=== PATIENT | male | born 1960 | race Caucasian/White ===

== ENCOUNTER 2021-06-16 15:46 | Inpatient (IN) | payer OTHER ==
[~2021-06-16] VITALS: Ht 182.9 cm; Wt 77.6 kg
[~2021-06-16 15:46] MED LIST: CIPR500 PO; DOCU100 PO; FINA5 PO; HYDR1TAB94 PO; LEVFLO250 PO; LOSA25 PO; METF500 PO; METO50ER PO; Novolin R100 UNIT/M; TAMS.4ER PO
[2021-06-16 17:21] LABS: BASOPHILS ABSOLUTE AUTO 0.05 K/mm3 (0.00-0.23); BASOPHILS PERCENT AUTO 0 % (0-2); EOSINOPHILS ABSOLUTE AUTO 0.02 K/mm3 (0.00-0.68); EOSINOPHILS PERCENT AUTO 0 % (0-6); Hematocrit 37.6 % (37.0-53.0); Hemoglobin 12.6 g/dL (13.5-17.5); IMMATURE GRAN ABSOLUTE AUTO 0.06 K/mm3 (0.00-0.10); IMMATURE GRAN PERCENT AUTO 0 % (0-1); LYMPHOCYTES PERCENT AUTO 12 % (21-46); MONOCYTES ABSOLUTE AUTO 0.63 K/mm3 (0.16-1.47); MONOCYTES PERCENT AUTO 4 % (4-13); Mean Corpuscular HGB 32.6 pg (26.0-34.0); Mean Corpuscular HGB Conc 33.5 g/dL (31.5-36.5); Mean Corpuscular Volume 97 fL (80-100); Mean Platelet Volume 9.4 fL (9.1-12.4); NEUTROPHILS ABSOLUTE AUTO 14.08 K/mm3 (1.96-9.15); NEUTROPHILS PERCENT AUTO 83 % (41-73); Platelet Count 618 K/mm3 (150-400); RDW Standard Deviation 53.6 fL (35.1-46.3); Red Blood Cell Count 3.87 M/mm3 (4.30-5.90); White Blood Cell Count 16.94 K/mm3 (4.00-11.30)
[2021-06-16 17:52] LABS: C-REACTIVE PROTEIN, EXT RANGE 0.359 mg/dL (0.000-0.300)
[2021-06-16 17:53] LABS: Alanine Aminotransfer (ALT/SGP 31 U/L (12-78); Albumin, Blood 1.6 g/dL (3.4-5.0); Albumin/Globulin Ratio 0.4 (0.8-1.8); Alk Phos 120 U/L (50-136); Anion Gap 6 mmol/L (6-16); Aspartate Aminotrans (AST/SGOT 31 U/L (12-37); Bilirubin, Total 0.1 mg/dL (0.1-1.0); Blood Urea Nitrogen 42 mg/dL (8-24); Bun/Creatinine Ratio 13.8 (12.0-20.0); CO2, Blood 22 mmol/L (21-32); Chloride, Blood 109 mmol/L (98-108); Creatinine, Blood 3.04 mg/dL (0.60-1.20); Globulin, Blood 3.7 g/dL (2.2-4.0); Glomerular Filtration Rate 21 (60-); Glucose, Blood 59 mg/dL (70-99); Potassium, Blood 5.2 mmol/L (3.5-5.5); Sodium, Blood 137 mmol/L (136-145); Total Protein, Blood 5.3 g/dL (6.4-8.2); Troponin I <0.015 ng/mL (0.000-0.040)
[2021-06-16] MEDS ORDERED: LISI20 PO (23:29)
[2021-06-16 23:45] LABS: Phosphorus, Blood 5.2 mg/dL (2.5-4.9)
[2021-06-17 01:03] LABS: Source, Urine Clean Catch
[2021-06-17 01:19] LABS: Bilirubin, Urine Neg (Neg); Blood, Urine 2+ (Neg); Glucose Qualitative, Urine 1+ (Neg); Ketones, Urine 1+ (Neg); Leukocyte Esterase, Urine Neg (Neg); Nitrite, Urine Neg (Neg); Protein, Urine 4+ (Neg); Urobilinogen, Urine NORM (Normal)
[2021-06-17 01:23] LABS: Appearance, Urine Clear (Clear)
[2021-06-17 01:25] LABS: Bacteria Not Seen /hpf; Red Blood Cells, Urine 0-2 /hpf (0-2); Squamous Epithelial Cells Not Seen /hpf (Few); White Blood Cells, Urine Not Seen /hpf (0-5)
[2021-06-17 01:26] LABS: Color, Urine Pale Yellow (P-Yellow)
--- NOTE | 2021-06-17 02:17 | NUR ---
PATIENT IS A NEW ADMIT FROM THE ED. AXOX 4, ONE ASSIST TRANSFER FROM [facility] TO BED. HYPERTENSIVE ON ADMIT AND ON ROOM AIR. LEFT PUPIL HORIZONTAL AND REPORTS BOTH EYES LIGHT SENSITIVE WITH HX OF CATARACTS. USES URINAL AT BEDSIDE ON LASIX FROM ED. MULTIPLE DIABETIC WOUNDS ON BLE FROM KNEE TO ANKLES. ERASER SIZE PRESSURE ULCER NOTED ON COCCYX. PATIENT ORIENTED TO ROOM AND CALL LIGHT SYSTEM. DENIES CHEST PAIN, SOB, AND N/V. WATCHING TV AFTER ASSESSMENT.
--- NOTE | 2021-06-17 02:24 | NUR ---
BP 200/106 AND IV APRESOLINE 10 MG GIVEN FOR SBP>180. BP 165/77 ON RECHECK. WOUND CONSENT SIGNED AND PICTURES TAKEN AND IN CHART. IV VANCO INFUSED. CALL LIGHT IN REACH.
--- NOTE | 2021-06-17 02:26 | NUR ---
URINE SAMPLE COLLECTED AND SENT TO LAB.
--- NOTE | 2021-06-17 04:30 | NUR ---
SHIFT SUMMARY PATIENT HAD NO ACUTE CHANGES. AXOX 4 AND SBA TO BSC. USES URINAL AT BEDSIDE. REPORTS BLURRED VISION AT TIMES AND HAS APPOINTMENT WITH HIS OPTHAMOLOGIST WITH HX OF CATARACTS AND LIGHT SENSITIVE. PIV REMAINS INTACT. IV ABX INFUSED. ENVELOPE ADDRESSER REPORTS NSR 92. BLE DIABETIC WOUNDS PHOTOGRAPHED AND IN CHART WITH CONSENT TO PHOTOGRAPH SIGNED. REPORTS HE IS UNCONTROLLED DIABETIC WITH LAST CHECK OF CBG MONTH AND HALF AGO. URINE SAMPLE SENT TO LAB. DENIES CHEST PAIN, SOB, AND N/V. COOPERATIVE WITH CARE. CALL LIGHT IN REACH. BED IN LOWEST POSITION. WILL CONTINUE TO MONITOR UNTIL DAY SHIFT NURSE ASSUMES CARE.
[2021-06-17 05:50] LABS: BASOPHILS ABSOLUTE AUTO 0.06 K/mm3 (0.00-0.23); BASOPHILS PERCENT AUTO 1 % (0-2); EOSINOPHILS ABSOLUTE AUTO 0.08 K/mm3 (0.00-0.68); EOSINOPHILS PERCENT AUTO 1 % (0-6); Hemoglobin 9.7 g/dL (13.5-17.5); IMMATURE GRAN ABSOLUTE AUTO 0.03 K/mm3 (0.00-0.10); IMMATURE GRAN PERCENT AUTO 0 % (0-1); LYMPHOCYTES PERCENT AUTO 15 % (21-46); MONOCYTES ABSOLUTE AUTO 0.62 K/mm3 (0.16-1.47); MONOCYTES PERCENT AUTO 5 % (4-13); Mean Corpuscular HGB 32.4 pg (26.0-34.0); Mean Corpuscular HGB Conc 33.4 g/dL (31.5-36.5); Mean Corpuscular Volume 97 fL (80-100); Mean Platelet Volume 9.8 fL (9.1-12.4); NEUTROPHILS PERCENT AUTO 78 % (41-73); Platelet Count 459 K/mm3 (150-400); RDW Coefficient Variation 14.8 % (11.7-14.2); RDW Standard Deviation 52.4 fL (35.1-46.3); Red Blood Cell Count 2.99 M/mm3 (4.30-5.90); White Blood Cell Count 11.89 K/mm3 (4.00-11.30)
[2021-06-17 06:25] LABS: Albumin/Globulin Ratio 0.4 (0.8-1.8); Bilirubin, Total 0.1 mg/dL (0.1-1.0); Bun/Creatinine Ratio 13.4 (12.0-20.0); Calcium, Blood 7.4 mg/dL (8.5-10.1); Creatinine, Blood 3.44 mg/dL (0.60-1.20); Globulin, Blood 2.8 g/dL (2.2-4.0); Magnesium, Blood 1.4 mg/dL (1.6-2.4); Potassium, Blood 4.9 mmol/L (3.5-5.5); Total Protein, Blood 3.8 g/dL (6.4-8.2)
--- NOTE | 2021-06-17 19:39 | NUR ---
PT A/O X4.AMBULATES WELL TO THE BATHROOM.NO ACUTE CHANGES. NO SIGNS OF DISTRESS. PT IS VERY COOPERATIVE WITH CARE. BILATERAL LOWER EXT WOUNDS CLEANED. WOUND CONSULT PER PROVIDER ORDER. PT STATES THAT ALIS IS WORKING BECAUSE HE SAW VERY MUCH LESS SWELLING. BP ELEVATED. TREATED PER MAR. PROVIDER NOTIFIED. REPORT GIVEN TO FORENSIC INVESTIGATOR NURSE
--- NOTE | 2021-06-17 19:47 | NUR ---
PATIENT EXTREMELY AGITATED REPORTING WANTS TO LEAVE AMA. DAY RN REPORTS NEEDED TO RECHECK HIGH BP MULTIPLE TIMES AND PATIENT UPSET. PATIENT IN BED AND WILL LET REST.
--- NOTE | 2021-06-18 04:09 | NUR ---
SHIFT SUMMARY PATIENT AGITATED AT START OF SHIFT REFUSING VITALS. REPORTED ONLY WANTS TO SLEEP AND IF INTERRUPTED WOULD LEAVE AMA. PATIENT COOPERATIVE LAST NOC SHIFT. AXO X 4 AND SBA TO BR. PIV REMAINS INTACT. FLUID RESTRICTION 1,500 mL. PATIENT SLEPT T/O SHIFT. CALL LIGHT IN REACH. BED IN LOWEST POSITION. WILL CONTINUE TO MONITOR UNTIL DAY SHIFT NURSE ASSUMES CARE.
[2021-06-18 05:39] LABS: Calcium, Blood 7.2 mg/dL (8.5-10.1); Creatinine, Blood 3.74 mg/dL (0.60-1.20); Potassium, Blood 5.1 mmol/L (3.5-5.5)
--- NOTE | 2021-06-18 05:43 | NUR ---
BP 171/93 AND IV 10 MG APRESOLINE GIVEN FOR SBP>160 BP 150/72 ON RECHECK
--- NOTE | 2021-06-18 09:31 | NUR ---
SHIFT SUMMARY PATIENT IS ALERT AND ORIENTED. MORNING MEDICATIONS GIVEN. PATIENT STATED "IM FEELING BETTER AND IM LEAVING" TALKED TO CHARGE NURSE AND BOTH CONSULTED PATIENT ABOUT LEAVING. PATIENT LEFT AMA. LORENA DUCKWORTH WALKED WITH PATIENT TO THE EXIT.
== END 2021-06-18 09:20 | disposition left against medical advice (07) | DRG 872 ==
LOC: ER 15:46 → MEDS 23:41
PROVIDERS: Internal Medicine; Physician Assistant; Student in an Organized Health Care Education/Training Program; ADMIT Internal Medicine
DX: A41.9 Sepsis, unspecified organism (principal); I13.0 Hypertensive heart and chronic kidney disease with heart failure and stage 1 through stage 4 chronic kidney disease, or unspecified chronic kidney disease; N17.9 Acute kidney failure, unspecified; R65.20 Severe sepsis without septic shock; I50.9 Heart failure, unspecified; Z23 Encounter for immunization; I16.0 Hypertensive urgency; E11.40 Type 2 diabetes mellitus with diabetic neuropathy, unspecified; E11.51 Type 2 diabetes mellitus with diabetic peripheral angiopathy without gangrene; S81.801A Unspecified open wound, right lower leg, initial encounter; S81.802A Unspecified open wound, left lower leg, initial encounter; N40.0 Benign prostatic hyperplasia without lower urinary tract symptoms; D63.1 Anemia in chronic kidney disease; E83.42 Hypomagnesemia; N18.9 Chronic kidney disease, unspecified; F17.210 Nicotine dependence, cigarettes, uncomplicated; Z85.46 Personal history of malignant neoplasm of prostate; Z88.8 Allergy status to other drugs, medicaments and biological substances; Z79.899 Other long term (current) drug therapy; X58.XXXA Exposure to other specified factors, initial encounter
CPT/HCPCS: 36415; 71046; 73630; 80048; 80053; 81001; 82947; 83036; 83605; 83690; 83735; 83880; 84100; 84484; 85025; 86140; 87040; 90686; 93005; 93010; 93306; 93971; 96365; 96375; 99285-25; A9270; G0008; J0360; J0696; J1650; J1940; J3370; J7040

== ENCOUNTER 2021-07-19 01:42 | Day surgery (SDC) | payer OTHER ==
[~2021-07-19 01:42] MED LIST changes: +LISI20 PO
== END 2021-07-19 22:38 | disposition home or self-care (01) ==
LOC: WOUND 01:42
DX: E11.621 Type 2 diabetes mellitus with foot ulcer (principal); L97.522 Non-pressure chronic ulcer of other part of left foot with fat layer exposed; L97.512 Non-pressure chronic ulcer of other part of right foot with fat layer exposed; I87.2 Venous insufficiency (chronic) (peripheral); E11.51 Type 2 diabetes mellitus with diabetic peripheral angiopathy without gangrene; R60.0 Localized edema; E11.22 Type 2 diabetes mellitus with diabetic chronic kidney disease; E11.42 Type 2 diabetes mellitus with diabetic polyneuropathy; I13.0 Hypertensive heart and chronic kidney disease with heart failure and stage 1 through stage 4 chronic kidney disease, or unspecified chronic kidney disease; I50.22 Chronic systolic (congestive) heart failure; N18.9 Chronic kidney disease, unspecified; F17.210 Nicotine dependence, cigarettes, uncomplicated; Z86.16 Personal history of COVID-19
CPT/HCPCS: G0463

== ENCOUNTER 2021-07-26 00:48 | Day surgery (SDC) | payer OTHER | END 2021-07-26 22:50 | disposition home or self-care (01) | LOC: WOUND 00:48 | DX: E11.621 Type 2 diabetes mellitus with foot ulcer (principal); L97.522 Non-pressure chronic ulcer of other part of left foot with fat layer exposed; L97.512 Non-pressure chronic ulcer of other part of right foot with fat layer exposed; I87.2 Venous insufficiency (chronic) (peripheral); E11.51 Type 2 diabetes mellitus with diabetic peripheral angiopathy without gangrene; R60.0 Localized edema; E11.22 Type 2 diabetes mellitus with diabetic chronic kidney disease; I13.0 Hypertensive heart and chronic kidney disease with heart failure and stage 1 through stage 4 chronic kidney disease, or unspecified chronic kidney disease; N18.9 Chronic kidney disease, unspecified; I50.22 Chronic systolic (congestive) heart failure; E11.42 Type 2 diabetes mellitus with diabetic polyneuropathy; F17.200 Nicotine dependence, unspecified, uncomplicated | CPT/HCPCS: A9270; G0463 ==

== ENCOUNTER 2021-10-17 17:37 | Inpatient (IN) | payer OTHER ==
[~2021-10-17] VITALS: Ht 182.9 cm; Wt 82.5 kg
[2021-10-17 19:55] LABS: BASOPHILS ABSOLUTE AUTO 0.07 K/mm3 (0.00-0.23); BASOPHILS PERCENT AUTO 0 % (0-2); EOSINOPHILS ABSOLUTE AUTO 0.01 K/mm3 (0.00-0.68); EOSINOPHILS PERCENT AUTO 0 % (0-6); Hematocrit 29.5 % (37.0-53.0); Hemoglobin 9.5 g/dL (13.5-17.5); IMMATURE GRAN ABSOLUTE AUTO 0.49 K/mm3 (0.00-0.10); IMMATURE GRAN PERCENT AUTO 1 % (0-1); LYMPHOCYTES ABSOLUTE AUTO 0.63 K/mm3 (0.84-5.20); LYMPHOCYTES PERCENT AUTO 2 % (21-46); MONOCYTES PERCENT AUTO 3 % (4-13); Mean Corpuscular HGB 31.4 pg (26.0-34.0); Mean Corpuscular HGB Conc 32.2 g/dL (31.5-36.5); Mean Corpuscular Volume 97 fL (80-100); Mean Platelet Volume 10.1 fL (9.1-12.4); NEUTROPHILS ABSOLUTE AUTO 33.53 K/mm3 (1.96-9.15); NEUTROPHILS PERCENT AUTO 93 % (41-73); Platelet Count 305 K/mm3 (150-400); RDW Standard Deviation 50.1 fL (35.1-46.3); Red Blood Cell Count 3.03 M/mm3 (4.30-5.90); White Blood Cell Count 35.93 K/mm3 (4.00-11.30)
[2021-10-17 20:12] LABS: Albumin, Blood 1.2 g/dL (3.4-5.0); Albumin/Globulin Ratio 0.3 (0.8-1.8); Bilirubin, Total 0.2 mg/dL (0.1-1.0); Bun/Creatinine Ratio 18.8 (12.0-20.0); Calcium, Blood 7.7 mg/dL (8.5-10.1); Creatinine, Blood 6.74 mg/dL (0.60-1.20); Globulin, Blood 4.7 g/dL (2.2-4.0); Potassium, Blood 5.4 mmol/L (3.5-5.5); Total Protein, Blood 5.9 g/dL (6.4-8.2)
[2021-10-17 20:59] LABS: Magnesium, Blood 1.9 mg/dL (1.6-2.4)
[2021-10-17 21:05] LABS: Thyroid Stimulating Hormone 9.88 uIU/mL (0.360-4.800)
[2021-10-17 21:58] LABS: Percent Saturation 19.3 % (20.0-50.0)
[2021-10-17 22:12] LABS: Phosphorus, Blood 8.3 mg/dL (2.5-4.9)
--- NOTE | 2021-10-18 00:17 | NUR ---
ADMIT NOTE 60 YR OLD MALE ADMITTED TO FLOOR FROM THE ED WITH DX OF CELLULITIS OF LEFT FOOT/LEG. NOTE OPEN SORES WITH FOUL ODOR. ED RN VOICED PT APPARENTLY HAS GANGRENE AND MD WILL DO POSSIBLE I AND D IN THE AM. NOTE SWELLING OF BLE AND ARMS. PT IS DIABETIC. ACCOMPANIED HIM TO THE FLOOR, WILL BE BACK IN THE AM. ORIENTED TO USE OF CALL LIGHT. CALL LIGHT IN REACH. IV OF VANCOMYCIN ADMIN AND PAIN MED. SEE MAR FOR DETAILS.
--- NOTE | 2021-10-18 04:16 | NUR ---
VP OF TECHNOLOGY SUMMARY ADMITTED EARLIER THIS SHIFT WITH LEFT FOOT CELLULITIS AND POSSIBLE GANGREEN. NOTE ODOR OF FOOT. HAS HAD PAIN MEDS X 2 THIS SHIFT - SEE SEP FOR DETAILS. IV ANTIBIOTICS ADMINISTERED WELL. LASIX ADMIN FOR SWELLING, ABLE TO USE URINAL. CALL LIGHT IN REACH
[2021-10-18 05:42] LABS: BASOPHILS ABSOLUTE AUTO 0.05 K/mm3 (0.00-0.23); BASOPHILS PERCENT AUTO 0 % (0-2); EOSINOPHILS ABSOLUTE AUTO 0.01 K/mm3 (0.00-0.68); EOSINOPHILS PERCENT AUTO 0 % (0-6); Hematocrit 26.8 % (37.0-53.0); Hemoglobin 8.5 g/dL (13.5-17.5); IMMATURE GRAN ABSOLUTE AUTO 0.39 K/mm3 (0.00-0.10); IMMATURE GRAN PERCENT AUTO 1 % (0-1); LYMPHOCYTES ABSOLUTE AUTO 0.69 K/mm3 (0.84-5.20); LYMPHOCYTES PERCENT AUTO 2 % (21-46); MONOCYTES ABSOLUTE AUTO 1.21 K/mm3 (0.16-1.47); MONOCYTES PERCENT AUTO 4 % (4-13); Mean Corpuscular HGB 30.9 pg (26.0-34.0); Mean Corpuscular HGB Conc 31.7 g/dL (31.5-36.5); Mean Corpuscular Volume 98 fL (80-100); Mean Platelet Volume 10.3 fL (9.1-12.4); NEUTROPHILS ABSOLUTE AUTO 26.97 K/mm3 (1.96-9.15); NEUTROPHILS PERCENT AUTO 92 % (41-73); Platelet Count 283 K/mm3 (150-400); RDW Coefficient Variation 14.3 % (11.7-14.2); RDW Standard Deviation 50.4 fL (35.1-46.3); Red Blood Cell Count 2.75 M/mm3 (4.30-5.90); White Blood Cell Count 29.32 K/mm3 (4.00-11.30)
[2021-10-18 06:10] LABS: Albumin, Blood 1.1 g/dL (3.4-5.0); Albumin/Globulin Ratio 0.2 (0.8-1.8); Bilirubin, Total 0.2 mg/dL (0.1-1.0); Bun/Creatinine Ratio 19.1 (12.0-20.0); Calcium, Blood 7.5 mg/dL (8.5-10.1); Creatinine, Blood 6.69 mg/dL (0.60-1.20); Globulin, Blood 4.4 g/dL (2.2-4.0); Magnesium, Blood 1.8 mg/dL (1.6-2.4); Potassium, Blood 5.5 mmol/L (3.5-5.5); Total Protein, Blood 5.5 g/dL (6.4-8.2)
--- NOTE | 2021-10-18 09:13 | NUR ---
CLARIFICATION TO BUMEX- SBP 95 AT THIS TIME, PER DR MARCIAL GIVEN ALBUMIN 12.5GM TID PRIOR TO BUMEX AND GIVE ONLY 4MG OF IV BUMEX AT THIS TIME.
--- NOTE | 2021-10-18 10:54 | NUR ---
TRANSFER TO ICU PT ARRIVES FROM MEDICAL FLOOR AT 1014. REPORT FROM ANA ROSA RN. PT ADMITTED FOR CELLULITIS. TRANSFERRED FOR AMS, BRADYCARDIA, HYPOTENSION AND HYPOGLYCEMIA. ARRIVES c D50 INFUSING. CBG 128 ON ARRIVAL. PT RESPONSIVE TO VERBAL STIMULI. A&OX 2. VERBALIZED UNDERSTANDING OF SITUATION, POSSIBLE AMPUTATION. SO AT BEDSIDE. REPORTS BILATERAL LE SWELLING X 2 MONTHS, BLISTERS STARTED DEVELOPING TO LEFT FOOT X 2 WEEKS, INCREASED WEAKNESS AT HOME. ADMITTED VIA ER LAST NOC. ANASCARSA. 3+ EDEMA BTK. PURPLE BLISTERS NOTED TO LATERAL LEFT HINDFOOT, BOTTOM OF LEFT FOOT. PPP. SB ON MONITOR, RATE 40'S. MAP>65 AT THIS TIME. O2 SATS 90%, PLACED ON 2L VIA NC. LUNGS CLEAR. COUGH NOTED. PT ABLE TO CLEAR SECRETIONS. AWAITING ORTHO CONSULT. DR IBARRA ESCORTED PT TO ICU. WILL CONTINUE TO MONITOR CLOSELY.
--- NOTE | 2021-10-18 11:14 | NUR ---
AM ASSESSMENT/ TRANSFER TO ICU- UPON EVALUTATING PATIENTS CHART THIS AM PT NOTED TO HAVE BLOOD GLUCOSE OF 51 ON AM LABS AT 0508. PT BLOOD GLUCOSE AT 0726 26, PT UNRESPONSIVE AT THIS TIME. DR IBARRA NOTIFIED, 250ML BAG OF DEXTROSE GIVEN AT THIS TIME. DR IBARRA AT BEDSIDE AND BLOOD GLUCOSE REMAINED AT 61 AT 0757, 56 AT 0800 WHEN A 500ML BAG OF DEXTROSE ORDERED AND GIVEN WELL IV GLUCAGON. AT 0824 GLUCOSE NOW 106. PT OPEN EYES MININALLY BUT DOES NOT VERBALLY RESPOND. BP 95/54 AT THIS TIME AND HR 46. TELE SB WITH FIRST DEGREE AND BBB AT 49. SPOKE WITH DR MARCIAL REGARDING BUMEX AND ORDERS RECEIVED TO ONLY GIVE 4MG IV BUMEX AFTER ALBUMIN HAS BEEN GIVEN. ALBUMIN STARTED. POWERGLIDE PLACED TO ROSEMARY. PT NOTED TO HAVE 2-3+ PITTING EDEMA TO BUE, BLE UP TO THIGH, PENIS AND SCROTUM AND ANASARCA. WOUND TO LEFT GREAT TOE WITH A BLISTER TYPE WOUND TO BOTTOM OF LEFT FOOT GOING DOWN TO HEEL. DR NAVARRO CONSULTED AND CAME TO BEDSIDE AND RECOMMENDED ORTHO FOR AMPUTATION. PER DR NAVARRO HE WILL NOTIFY ORTHO. BLOOD GLUCOSE DROPPED BACK TO [address] WALDEN ORDERED ANOTHER 500ML BAG OF DEXTROSE TO BE GIVEN AND PT TO TRANSFER TO ICU. PT TRANSFERED TO ICU 12, BEDSIDE REPORT GIVEN TO JUAN AMBRIZ. PT DID AWAKE JUST PRIOR TO TRANSFER AND DR IBARRA UPDATED PT. DR IBARRA AT BEDSIDE FOR TRANSFER. SPOUSE WHO WAS AT BEDSIDE AWARE OF TRANSFER. PT LEFT PUPIL NOTED TO BE IRREGULAR IN SHAPE AND SLUGGISH, DR IBARRA AWARE.
--- NOTE | 2021-10-18 12:36 | NUR ---
REMOEVED RING FROM [place] FINGER AND GAVE TO MALI. ADMIT PROCESS BEGAIN IN ICU 12 INFORMED CAN BRING TO DAY SURGERY
[2021-10-18 13:22] LABS: Source, Urine Foley catheter
[2021-10-18 13:46] LABS: Appearance, Urine Cloudy (Clear); Bilirubin, Urine Neg (Neg); Blood, Urine 3+ (Neg); Color, Urine Yellow (P-Yellow); Glucose Qualitative, Urine 1+ (Neg); Ketones, Urine Neg (Neg); Leukocyte Esterase, Urine Neg (Neg); Nitrite, Urine Neg (Neg); Protein, Urine 3+ (Neg); Urobilinogen, Urine NORM (Normal)
--- NOTE | 2021-10-18 14:50 | NUR ---
10/18/21 1450 Kayleen Taylor NO PREOP ANTIBIOTICS ORDERED PER PATIENT IS ON SCHEDULED ANTIBIOTICS. LAST RECEIVED CLINDA 900MG AT 1125 ON 10/18/21.
[2021-10-18 15:15] LABS: PCO2 Arterial 36.3 mmHg (35-45); PO2 Arterial 302 mmHg (80-100)
[2021-10-18 15:35] LABS: Amorphous Mod (0-Heavy); Bacteria Many /hpf; Squamous Epithelial Cells Rare /hpf (Few)
--- NOTE | 2021-10-18 17:36 | NUR ---
RETURN TO ICU POST OP/SHIFT SUMMARY PT RETURNS TO ICU POST LEFT BTK AT 1539. PT ARRIVES ON NRB AT 15L, TITRATED TO NC AT 2 L. PT DROWSY, WAKES TO VERBAL STIMULI. SLURRED SPEECH. A&OX 2. FOLLOWS COMMANDS. LUNGS CLEAR. SB ON MONITOR, RATE 40'S. LEVO STARTED FOR MAP>65. ANASARCIA, WEEPING FROM IV PUNCTURE SITES. PATENT, 50 ML OUTPUT THIS SHIFT. RECTAL TEMP PLACED, 89.9, HEATHER HUGGER IN PLACE. PICC PLACED TO E. IVF CHANGED TO BICARB. 2ND DOSE OF TXA GIVEN. WILL CONTINUE TO MONITOR UNTIL REPORT TO ONCOMING NURSE.
--- NOTE | 2021-10-18 18:50 | NUR ---
UPDATED/CALL TO DR GRAHAM CONTINUING TO GET VARIABLE DBP. ARM IS VERY EDEMATOUS. CONCERN FOR INACCURATE BP. LEVO AT 15 CG/MIN. GOOD MENTATION. PT A&OX 3. FOLLOWS COMMANDS. DENIES PAIN. ONLY COMPLAINT IS HUNGER. PASSED BEDSIDE SWALLOW EVAL. TOLERATING CLEAR LIQUIDS, GIVING FRUIT CUP NOW. DISCUSSED ECHO, PLAN FOR TOMORROW, INACCURATE BP, NO ART LINE INDICATED AT THIS TIME D/T CLEAR MENTATION, AND PRESSOR REQUIREMENTS, VASO ADDED c DR GRAHAM.
[2021-10-18 21:06] LABS: Base Excess Venous -13.7 mmol/L; Bicarbonate Venous 14.2 mmol/L (24.0-30.0); PCO2 Venous 49.1 mmHg (38-42); pH Blood Venous 7.11 (7.34-7.37)
[2021-10-18 21:09] LABS: Hemoglobin 7.9 g/dL (13.5-17.5)
[2021-10-18 21:46] LABS: Potassium, Blood 5.6 mmol/L (3.5-5.5); Vancomycin, Random 11.9 ug/mL
[2021-10-18 22:07] LABS: PCO2 Arterial 46.7 mmHg (35-45); PO2 Arterial 73.7 mmHg (80-100); pH Blood Arterial 7.13 (7.35-7.45)
[2021-10-19 04:48] LABS: BASOPHILS ABSOLUTE AUTO 0.02 K/mm3 (0.00-0.23); BASOPHILS PERCENT AUTO 0 % (0-2); EOSINOPHILS ABSOLUTE AUTO 0.04 K/mm3 (0.00-0.68); EOSINOPHILS PERCENT AUTO 0 % (0-6); Hematocrit 23.6 % (37.0-53.0); Hemoglobin 7.6 g/dL (13.5-17.5); IMMATURE GRAN ABSOLUTE AUTO 0.22 K/mm3 (0.00-0.10); IMMATURE GRAN PERCENT AUTO 1 % (0-1); LYMPHOCYTES ABSOLUTE AUTO 0.66 K/mm3 (0.84-5.20); LYMPHOCYTES PERCENT AUTO 4 % (21-46); MONOCYTES ABSOLUTE AUTO 0.74 K/mm3 (0.16-1.47); MONOCYTES PERCENT AUTO 4 % (4-13); Mean Corpuscular HGB 31.7 pg (26.0-34.0); Mean Corpuscular HGB Conc 32.2 g/dL (31.5-36.5); Mean Corpuscular Volume 98 fL (80-100); Mean Platelet Volume 10.4 fL (9.1-12.4); NEUTROPHILS PERCENT AUTO 91 % (41-73); Platelet Count 257 K/mm3 (150-400); RDW Standard Deviation 50.6 fL (35.1-46.3); White Blood Cell Count 18.28 K/mm3 (4.00-11.30)
[2021-10-19 05:15] LABS: Alanine Aminotransfer (ALT/SGP 61 U/L (12-78); Albumin, Blood 1.1 g/dL (3.4-5.0); Albumin/Globulin Ratio 0.3 (0.8-1.8); Alk Phos 583 U/L (50-136); Anion Gap 12 mmol/L (6-16); Aspartate Aminotrans (AST/SGOT 39 U/L (12-37); Bilirubin, Total 0.2 mg/dL (0.1-1.0); Blood Urea Nitrogen 128 mg/dL (8-24); Bun/Creatinine Ratio 19.6 (12.0-20.0); CO2, Blood 18 mmol/L (21-32); Calcium, Blood 6.8 mg/dL (8.5-10.1); Chloride, Blood 103 mmol/L (98-108); Creatinine, Blood 6.54 mg/dL (0.60-1.20); Glomerular Filtration Rate 9 (60-); Glucose, Blood 179 mg/dL (70-99); Magnesium, Blood 1.7 mg/dL (1.6-2.4); Potassium, Blood 5.8 mmol/L (3.5-5.5); Sodium, Blood 133 mmol/L (136-145); Total Protein, Blood 5.1 g/dL (6.4-8.2); Vancomycin, Random 24.9 ug/mL
[2021-10-19 05:41] LABS: Phosphorus, Blood 8.9 mg/dL (2.5-4.9)
--- NOTE | 2021-10-19 07:00 | NUR ---
Alert and oriented at beginning of shift. very edemenous with weeping areas. Left BKA drsg dry and intact. Woke up pulling off oxygen and very agitated. Was able to calm and reorient. Critical pH level called to physcian and orders recieved. increased oxygen to 4L NC due to desats. woke up this am very confused, pulling off oxygen. Sats dropped to low 80's.Very agitated, not letting nurse reapply oxygen. Could not redirect, yelling needs to get up out of bed. Nurse explained can not get up due to new amputation. Unable to redirect or get oxygen on. Order for restraints recieved Applied bilat soft wrist restraints. oxygen reapplied. Sats recovered. Resting quietly at this time.
--- NOTE | 2021-10-19 08:15 | NUR ---
ASSUMED CARE BEDSIDE REPORT FROM KRISTEL MARTINEZ AT 0700. PT RESTING IN BED. WAKES WHEN ENTERS ROOM. IRRITABLE, REQUESTING THAT WE "OPEN" HIS HANDS UP. RESTRAINTS REMOVED. MASSAGING HANDS. PT ANSWERS SIMPLE QUESTIONS APPROPRIATELY BUT IRRITABLE c ASSESSMENT. DIFFICULT TO REDIRECT. LUNGS DIM IN BASES. 4L VIA NC. 1DEGREE c BBB ON MONITOR. PT PALE, WARM, DRY. ANASCARSA. PLAN FOR DIALYSIS CATH AND DIALYSIS TODAY. 4+ EDEMA THROUGHOUT BODY. LEVO AND VASO GTT FOR MAP>65. BICARB AT 100 ML/HR. PT NORMOTHERMIC, RECTAL TEMP PROBE IN PLACE. PATENT, DRAINING SCANT URINE TO GRAVITY. DRESSING TO LEFT BTK, WILL ASSESS c FIRST DRESSING CHANGE c SURGEON THIS SHIFT. WOUND TO RIGHT HEEL, ELEVATED. SEE SKIN ASSESSMENT. PICC TO LUE, POWERGLIDE TO RUE, DRESSINGS C/D/I. WILL CONTINUE TO MONITOR.
--- NOTE | 2021-10-19 11:00 | NUR ---
DIALYSIS CATH PLACEMENT VERSED GIVEN PRIOR TO [facility]ACEMENT. [facility]. PT BECAME SOLMULENT, ROMAZICON GIVEN AND BVM ASSISTED VENTILATIONS. PT WOKE, RESPONSIVE TO PAINFUL STIMULI. PLACED ON BIPAP. TWO ADDITIONAL DOSES GIVEN FOR LOW MINUTE VENTILATION. PT RESPONSIVE TO VERBAL STIMULI. FOLLOWS SIMPLE DIRECTIONS.
[2021-10-19 11:54] LABS: Hematocrit 23.4 % (37.0-53.0); Hemoglobin 7.6 g/dL (13.5-17.5); Mean Corpuscular HGB 31.8 pg (26.0-34.0); Mean Corpuscular HGB Conc 32.5 g/dL (31.5-36.5); Mean Corpuscular Volume 98 fL (80-100); Mean Platelet Volume 10.6 fL (9.1-12.4); NRBC ABSOLUTE 0.02 K/mm3 (0.00-0.02); NRBC Auto 0.1 /100 WBC (0.0-0.2); Platelet Count 246 K/mm3 (150-400); RDW Coefficient Variation 14.1 % (11.7-14.2); RDW Standard Deviation 50.5 fL (35.1-46.3); Red Blood Cell Count 2.39 M/mm3 (4.30-5.90); White Blood Cell Count 15.88 K/mm3 (4.00-11.30)
[2021-10-19 12:18] LABS: International Normalized Ratio 1.39; Prothrombin Time Results 14.3 Sec (9.7-11.5)
[2021-10-19 12:23] LABS: BAND PERCENT MAN 12 % (0-8); BASOPHILS PERCENT MAN 0 % (0-2); EOSINOPHILS PERCENT MAN 0 % (0-6); LYMPHOCYTES ABSOLUTE MAN 0.79 K/mm3 (0.84-5.20); LYMPHOCYTES PERCENT MAN 5 % (21-46); METAMYELOCYTE ABSOLUTE MAN 0.31 K/mm3 (0.00-0.00); METAMYELOCYTE PERCENT MAN 2 % (0-0); MONOCYTES ABSOLUTE MAN 0.31 K/mm3 (0.16-1.47); MONOCYTES PERCENT MAN 2 % (4-13); MYELOCYTE ABSOLUTE MAN 0.31 K/mm3 (0.00-0.00); MYELOCYTE PERCENT MAN 2 % (0-0); NEUTROPHILS ABSOLUTE MAN 14.13 K/mm3 (1.96-9.15); SEG NEUTROPHILS PERCENT MAN 77 % (41-73); TOTAL CELLS COUNTED 100
[2021-10-19 12:27] LABS: Bun/Creatinine Ratio 20.4 (12.0-20.0); Calcium, Blood 7.3 mg/dL (8.5-10.1); Creatinine, Blood 6.07 mg/dL (0.60-1.20); Magnesium, Blood 1.8 mg/dL (1.6-2.4)
--- NOTE | 2021-10-19 12:29 | NUR ---
YOVANNY MARTINEZ ENTERPRISE ARCHITECT AT BEDSIDE. STARTED RUN. HR DECREASED TO 40'S, HYPOTENSIVE. PT NOT RESPONSIVE TO PAINFUL STIMULI. NO PULSE PALPABLE. YOVANNY MARTINEZ CALLED. DR GRAHAM IMMEDIATELY TO BEDSIDE. SEE CODE SHEET FOR ADDITIONAL NOTES.
[2021-10-19 12:33] LABS: Phosphorus, Blood 9.5 mg/dL (2.5-4.9)
--- NOTE | 2021-10-19 12:34 | NUR ---
Spiritual Care - response to Code Blue Pt. had coded and staff were in midst of chest compressions when LANCE arrived. LANCE was in the building and heard the Code while on the elevator. Offered support along with pts. doctor and palliative care. LANCE's (Jenniefr) mother was contacted by palliative care at the Jennifer's request to return to the hospital. After Pt. was intubated and stabilized, set up two chairs near bed and sat with Jennifer giving a calming presence and facilitating a short life review. Gave a pastoral prayer for Pt. and family. Jennifer and her mother verbalized questions regarding what is next. Normalized the doctor's verbalized obeservations and affirmed the fragile nature of the Pts. condition. Prepared the Jennifer for a future discussion with palliative care, but also encouraged her to consider who she might think needs to see the pt. Developed rapport with Jennifer and the her mother. Jennifer verbalized gratitude for the work and care of the entire staff during this crtitcal intervention.
--- NOTE | 2021-10-19 12:36 | NUR ---
Arrived to Pt room with Code Team providing resuscitation efforts. Pt's SO Jennifer at ICU nurses station and is tearful. Road Roller Engineeradi Reyes, and Dr Kenny providing emotional support. This RN contintrubed emotional support and called Jennifer's mother per her request to provide update and to return to the hospital. SONAM achieved by code team. Dr Ashraf provides update and Dr Kenny answers questions. Continued supportive visit. Jennifer agreeable for this RN to F/U later today. Palliative Care will remain available.
[2021-10-19 13:06] LABS: PCO2 Arterial 48.3 mmHg (35-45); PO2 Arterial 72 mmHg (80-100); pH Blood Arterial 7.23 (7.35-7.45)
--- NOTE | 2021-10-19 14:07 | NUR ---
DR MCNEIL ROUND/NEURO CHECK DR MCNEIL AT BEDSIDE TO ASSESS STUMP. DRESSING REMOVED, DRAIN REMOVED BY MD. INCISION APPROXIMATED, NO REDNESS, SWELLING OR DRAINAGE. POSTERIOR KNEE ASSESSED. DISCOLORATION NO LONGER DARK NEAR BLACK, NOW RED/PURPLE IN COLOR. PT OPENS EYES AND GRIMACES c DRESSING CHANGE. BREATHING OVER VENT. ABLE TO KAIAWHINA c BOTH HANDS ON COMMAND. DR GRAHAM AT BEDSIDE. PROPOFOL GTT STARTED AND FENTANYL GIVEN FOR PAIN.
[2021-10-19 16:36] LABS: Hematocrit 26.2 % (37.0-53.0); Hemoglobin 8.6 g/dL (13.5-17.5)
[2021-10-19 16:48] LABS: Bun/Creatinine Ratio 19.5 (12.0-20.0); Calcium, Blood 6.7 mg/dL (8.5-10.1); Creatinine, Blood 6.31 mg/dL (0.60-1.20); Potassium, Blood 5.5 mmol/L (3.5-5.5)
--- NOTE | 2021-10-19 17:23 | NUR ---
SHIFT SUMMARY CODE THIS SHIFT (17 MINUTES), SEE PREVOUS NOTE AND CODE BLUE SHEET. DIALYSIS RUN INCOMPLETE. INTUBATED DURING CODE, 8.0 ETT, 24 AT TEETH. VENT SETTINGS PC 20/0.9/12/80%. LUNGS CLEAR, SECRETIONS THROUGH ETT INTITALLY MODERATE AMOUNT AND SMYTH, NOW SMALL THIN CLEAR. COUGH REFLEX, CORNEAL REFLEX. RESPONDED TO VERBAL STIMULI PRIOR TO SEDATION, PROPOFOL GTT INFUSING. NO RESPONSE TO PAINFUL STIMULATION AT THIS TIME. INITIALLY ON 4 PRESSORS AT MAX DOSES, TITRATED DOWN THIS SHIFT, LEVO, DOPAMINE, VASO GTT INFUSING. CONTINUING TO TITRATE DOWN. SR, RATE 70'S. PT EXTREMELY EDEMATOUS, 4+ PITTING EDEMA TO ENTIRE BODY. OGT TO LIS, SCANT BROWN EMESIS OUT THIS SHIFT. PATENT, DRAINED 70 ML CLOUDY YELLOW URINE OUT. INCISION SITE WNL, SEE PREVIOUS NOTE. BLE ELEVATED ON PILLOWS. AT BEDSIDE. WILL CONTINUE TO MONITOR UNTIL REPORT TO ONCOMING NURSE.
--- NOTE | 2021-10-19 17:27 | NUR ---
Spiritual Care follow up. Pt. is on a ventilator. SO (Jennifer) is present. Re-establish rapport with Jennifer, and she displays evidence of increased hope. Jennifer verbalizes gratitude for the great care the staff (especially JUAN Ugalde) is giving to the Pt. and gratitude for the spiritual care visit.
[2021-10-19 19:25] LABS: Albumin, Blood 1.1 g/dL (3.4-5.0); Anion Gap 11 mmol/L (6-16); Blood Urea Nitrogen 124 mg/dL (8-24); Bun/Creatinine Ratio 19.8 (12.0-20.0); CO2, Blood 20 mmol/L (21-32); Calcium, Blood 6.7 mg/dL (8.5-10.1); Chloride, Blood 102 mmol/L (98-108); Creatinine, Blood 6.27 mg/dL (0.60-1.20); Glomerular Filtration Rate 9 (60-); Glucose, Blood 298 mg/dL (70-99); Potassium, Blood 5.5 mmol/L (3.5-5.5); Sodium, Blood 133 mmol/L (136-145)
[2021-10-19 19:28] LABS: Phosphorus, Blood 8.8 mg/dL (2.5-4.9)
--- NOTE | 2021-10-19 21:34 | NUR ---
ASSUMED CARE AT 1900 PATIENT IS INTUBATED AND SEDATED ON PROPOFOL. LOCALIZES TO PAIN, MOVEMENT IN ALL EXTREMETIES, PUPILS REACTIVE, LEFT PUPIL IRREGULAR SHAPE. NO EYE OPENING OR FOLLOWING COMMANDS. 02 SATS 94% ON VENT PC 20/12/85%, RR 20. LS COARSE T/O. NO GAG REFLEX WITH SUCTIONING AT START OF SHIFT, SEDATION TITRATED DOWN SLIGHTLY, PATIENT NOW HAS GAG REFLEX. HR SR @ 70s, BP WITH MAP >65 WITH LEVO AND DOPAMINE. OG TO LIS, GREEN BILE OUTPUT. PATENT AND DRAINING SCANT AMOUNT OF CLOUDY YELLOW URINE. PATIENT REPOSITIONED AND ORAL CARE DONE. SEE SHIFT ASSESSMENT FOR MORE INFO.
[2021-10-20 04:34] LABS: BASOPHILS ABSOLUTE AUTO 0.02 K/mm3 (0.00-0.23); BASOPHILS PERCENT AUTO 0 % (0-2); EOSINOPHILS ABSOLUTE AUTO 0.04 K/mm3 (0.00-0.68); EOSINOPHILS PERCENT AUTO 0 % (0-6); Hemoglobin 7.5 g/dL (13.5-17.5); IMMATURE GRAN ABSOLUTE AUTO 0.17 K/mm3 (0.00-0.10); IMMATURE GRAN PERCENT AUTO 1 % (0-1); LYMPHOCYTES ABSOLUTE AUTO 0.95 K/mm3 (0.84-5.20); LYMPHOCYTES PERCENT AUTO 5 % (21-46); MONOCYTES ABSOLUTE AUTO 0.64 K/mm3 (0.16-1.47); MONOCYTES PERCENT AUTO 3 % (4-13); Mean Corpuscular HGB 31.4 pg (26.0-34.0); Mean Corpuscular HGB Conc 34.1 g/dL (31.5-36.5); Mean Platelet Volume 10.8 fL (9.1-12.4); NEUTROPHILS ABSOLUTE AUTO 16.85 K/mm3 (1.96-9.15); NEUTROPHILS PERCENT AUTO 90 % (41-73); Platelet Count 265 K/mm3 (150-400); RDW Coefficient Variation 13.8 % (11.7-14.2); RDW Standard Deviation 46.9 fL (35.1-46.3); Red Blood Cell Count 2.39 M/mm3 (4.30-5.90); White Blood Cell Count 18.67 K/mm3 (4.00-11.30)
[2021-10-20 04:35] LABS: Magnesium, Blood 1.5 mg/dL (1.6-2.4)
[2021-10-20 04:45] LABS: Mean Corpuscular Volume 92 fL (80-100)
[2021-10-20 04:46] LABS: Anion Gap 10 mmol/L (6-16); Blood Urea Nitrogen 122 mg/dL (8-24); Bun/Creatinine Ratio 19.6 (12.0-20.0); CO2, Blood 22 mmol/L (21-32); Calcium, Blood 6.2 mg/dL (8.5-10.1); Chloride, Blood 100 mmol/L (98-108); Creatinine, Blood 6.22 mg/dL (0.60-1.20); Glomerular Filtration Rate 9 (60-); Glucose, Blood 291 mg/dL (70-99); Phosphorus, Blood 8.8 mg/dL (2.5-4.9); Potassium, Blood 5.2 mmol/L (3.5-5.5); Sodium, Blood 132 mmol/L (136-145)
--- NOTE | 2021-10-20 06:39 | NUR ---
SHIFT SUMMARY PATIENT REMAINS INTUBATED AND SEDATED ON PROPOFOL. LOCALIZES TO PAIN, MOVEMENT IN ALL EXTREMETIES, PUPILS REACTIVE. 02 SATS 97% ON VENT PC 20/12/75%, LS COARSE WITH SOME WHEEZES. HR SR 70s-80s, BP WITH MAP >65 ON DOPAMINE. OG TO LIS, LARGE AMOUNTS OF GREEN BILE. PATENT AND DRAINING TO GRAVITY, 150 MLS OUT THIS SHIFT. BED BATH DONE, PICTURE OF PENIS WOUND ADDED TO CHART. PATIENT REPOSITIONED Q2 HOURS, ORAL CARE COMPLETE. DR. MARCIAL TO ROOM THIS AM, AWARE OF LABS, SODIUM BICARB RATE CHANGED TO 50 MLS/HR, TO BE STOPPED ONCE DIALYSIS IS STARTED.
--- NOTE | 2021-10-20 08:00 | NUR ---
INITIAL ASSESSMENT PATIENT INTUBATED AND ON SEDATION. PATIENT RESPONDS TO NOXIOUS STIMULI. SCLERAL EDEMA NOTED. L PUPIL NOTED TO BE IRREGULAR SHAPED. PATIENT AFEBRILE. PATIENT ON ACPC 20, PI 18, PEEP 12 AND 60% FIO2. LUNGS DIMINISHED THROUGHOUT. SMALL, THIN, YELLOW SPUTUM BEING SUCTIONED FROM ETT. PATIENT HAS FIRST DEGREE AV BLOCK WITH BBB. HR IN THE 70S. SBP IN THE 120S. DOPAMINE INFUSING AT 3 MCG/ KG/ MINUTE. R FOOT DOPPLER PULSES. ABDOMEN MODERATE DISTENTION WITH HYPOACTIVE BOWEL SOUNDS NOTED. OG TO LIS. DRAINING YELLOW, CLOUDY URINE. SCROTUM SWOLLEN. L BKA WITH DRESSING C/D/I. LACERATION NOTED TO PENIS. ULCER TO R HEEL AND R 3RD AND 4TH TOES; ULCERS TO TOES LEFT OPEN TO AIR. HEEL ULCER CLEANSED AND DRESSING APPLIED. LEG ELEVATED TO ALLOW HEEL TO BE FREE FROM ANY PRESSURE. BICARB INFUSING AT 50 MLS/ HOUR, NS TKO, PROPOFOL AT 15 MCG/ KG/ MINUTE. BED LOW, CALL LIGHT IN REACH. AT BEDSIDE.
[2021-10-20 08:11] LABS: HEMOGLOBIN A1C 11.9 % (4.8-5.6)
--- NOTE | 2021-10-20 12:00 | NUR ---
PATIENT AFEBRILE. HR IN THE 70S. SBP IN THE 120S. DOPAMINE AT 5 MCG/ KG/ MINUTE. PEEP DECREASED FROM 12 TO 10. NO OTHER ACUTE CHANGES TO NOTE ON AT THIS TIME. NO SIGNS OF PAIN OR DISCOMFORT NOTED.
--- NOTE | 2021-10-20 12:16 | NUR ---
Spoke with Primary RN earlier this AM and discussed case. Pt scheduled for dialysis after lunch. Pt resting in bed, eyes closed, and intubated. Pt appears comfortable with no S/S of distress at this time. Family at bedside including S/O Jennifer. Offered therapeutic listening and answered questions. Jennifer expresses concern and anxiety towards plan of dialysis. Validated concerns and continued therapeutic listening. Palliative Care will remain available.
--- NOTE | 2021-10-20 17:16 | NUR ---
PATIENT AFEBRILE. DOPAMINE PLACED ON SB. HR IN THE 50S. SBP IN THE 90S. FIO2 DECREASED TO 50%. TF INFUSING AT GOAL RATE. NO OTHER ACUTE CHANGES TO NOTE ON AT THIS TIME. AT BEDSIDE. NO SIGNS OF PAIN NOTED.
--- NOTE | 2021-10-20 19:15 | NUR ---
ASSUMED CARE OF PATIENT AT 1915. PT IS LAYTNG SUPINE. HE IS RECIEVING DOPAMINE AT 1 MCG/KG/MIN, IV FLUIDS AT 10 ML/HR, PROPOFOL AT 25 MCG/KG/MIN, AND IS RECIEVING NEPRO 25 ML/HR THROUGH OG TUBE. HIS VENT SETTINGS; AC/PC 20, IP 18, 10, 30%. RR OF 20, HIS SPO2 IS 95%, HR IS 59. 1ST DEGREE AV BLOCK WITH BBB. BP STABLE, SEE FLOW SHEET. PT HAS A CATHETER THAT IS PATENT AND DRAINING TO GRAVITY. PT'S FAMILY WAS IN THE ROOM, STAYING ONSITE IN AN RV. REQUESTS THAT WE NOTIFY HER WITH ANY CHANGE. SEE SHIFT SUMMARY.
--- NOTE | 2021-10-20 19:33 | NUR ---
SHIFT SUMMARY PATIENT REMAINED ON SEDATED AND INTUBATED THIS SHIFT. PATIENT CONTINUES TO RESPOND TO PAIN. PATIENT REMAINED AFEBRILE. PATIENT GIVEN PRN FENTANYL OT THIS AM. LUNGS REMAINED DIMINISHED. PATIENT ON ACPC 20, PI 18, PEEP 10 AND 50% FIO2. VENT SETTINGS IMPROVED THIS SHIFT. PATIENT REMAINED IN FIRST DEGREE HB AND BBB. HR 50S TO 80S. SBP 90S TO 160. DOPAMINE AT 1 MCG/ KG/ MINUTE AT THIS TIME. BLOOD PRESSURE IMPROVED AFTER DIALYSIS. NO BM THIS SHIFT. TF STARTED THIS SHIFT. DRAINED 205 MLS OF YELLOW, CLOUDY URINE THIS SHIFT. DR. HERNANDEZ AWARE OF MINIMAL OUTPUT. NS TKO, PROPOFOL AT 25 MCG/ KG/ MINUTE. PATIENT RECEIVED MAG REPLACEMENT THIS AM. ANTIBIOTICS CHANGED BY TODAY. 1.2 L OUT WITH DIALYSIS TODAY. WOUND CARE PERFORMED ON R FOOT. BLOOD SUGARS RANGED FROM 155 TO 242. REMAINED IN THE ROOM MOST OF THE DAY TODAY. BED LOW, CALL LIGHT IN REACH. PATIENT APPEARS COMFORTABLE AT THIS TIME. REPORT HAS BEEN GIVEN TO ASSUMING BUSINESS BANKING REPRESENTATIVE NURSE.
[2021-10-21 04:17] LABS: BASOPHILS ABSOLUTE AUTO 0.03 K/mm3 (0.00-0.23); BASOPHILS PERCENT AUTO 0 % (0-2); EOSINOPHILS PERCENT AUTO 3 % (0-6); Hematocrit 19.6 % (37.0-53.0); Hemoglobin 6.5 g/dL (13.5-17.5); IMMATURE GRAN ABSOLUTE AUTO 0.15 K/mm3 (0.00-0.10); IMMATURE GRAN PERCENT AUTO 1 % (0-1); LYMPHOCYTES ABSOLUTE AUTO 1.36 K/mm3 (0.84-5.20); LYMPHOCYTES PERCENT AUTO 12 % (21-46); MONOCYTES ABSOLUTE AUTO 0.57 K/mm3 (0.16-1.47); MONOCYTES PERCENT AUTO 5 % (4-13); Mean Corpuscular HGB 30.5 pg (26.0-34.0); Mean Corpuscular HGB Conc 33.2 g/dL (31.5-36.5); Mean Corpuscular Volume 92 fL (80-100); Mean Platelet Volume 10.7 fL (9.1-12.4); NEUTROPHILS ABSOLUTE AUTO 9.16 K/mm3 (1.96-9.15); NEUTROPHILS PERCENT AUTO 79 % (41-73); Platelet Count 205 K/mm3 (150-400); RDW Coefficient Variation 13.8 % (11.7-14.2); RDW Standard Deviation 46.1 fL (35.1-46.3); Red Blood Cell Count 2.13 M/mm3 (4.30-5.90); White Blood Cell Count 11.57 K/mm3 (4.00-11.30)
[2021-10-21 04:50] LABS: Albumin/Globulin Ratio 0.3 (0.8-1.8); Bilirubin, Total 0.2 mg/dL (0.1-1.0); Bun/Creatinine Ratio 18.2 (12.0-20.0); Calcium, Blood 6.2 mg/dL (8.5-10.1); Creatinine, Blood 5.28 mg/dL (0.60-1.20); Globulin, Blood 3.4 g/dL (2.2-4.0); Magnesium, Blood 1.6 mg/dL (1.6-2.4); Potassium, Blood 4.4 mmol/L (3.5-5.5); Total Protein, Blood 4.4 g/dL (6.4-8.2)
[2021-10-21 04:53] LABS: Phosphorus, Blood 8.1 mg/dL (2.5-4.9)
[2021-10-21 05:33] LABS: Bicarbonate Venous 25.1 mmol/L (24.0-30.0); PCO2 Venous 42.7 mmHg (38-42); PO2 Venous 49.2 mmHg (38-42); pH Blood Venous 7.39 (7.34-7.37)
--- NOTE | 2021-10-21 06:04 | NUR ---
END OF SHIFT SUMMARY PT IS ON DOPAMINE 1 MCG/KG/MIN, IV FLUIDS AT 10 ML/HR, PROPOFOL INCREASED TO 30 MCG/KG/MIN. NEPRO IS INFUSING VIA OG AT 25 ML/HR. HIGH RESIDUAL OF 350, HELD FEED FOR 1 HOUR. TEMPERATURE DECREASED 96.1 F TO 95.0 F DESPITE WARM BLANKETS. AC/PC 20, PI 18, PEEP 10, FIO2 30%. SPO2 READINGS IN THE MID TO HIGH 90'S. PT IS HAVING +3 EDEMA BUE, BLE, AND TO THE SCROTUM AND PENIS. LUNG SOUNDS REMAIN WHEEZES THROUGHOUT. PT'S URINE OUTPUT 150 ML FROM CATHETER. PT REMAINS SEDATED, OPENING EYES TO PAINFUL STIMULI. PT HAS A FIRST DEGREE HEART BLOCK WITH BBB. HR IN 50'S. BP IS 120/62. CONTINUE TO MONITOR UNTIL UNCOMING RN.
--- NOTE | 2021-10-21 07:15 | NUR ---
Received report from Heriberto MARTINEZ. Patient is intubated and sedated. He has 8.0 ET and at 24 cm at teeth with settings of AC/PC 20/18/30/10 and sats 95%. He withdrawls with pain and care. He has PICC line in SHANICE infusing Dopamine at 1 mcg/kg/min, NS TKO, Propofol at 30 mcg/kg/min. He has 18Fr rodriguez draining to gravity kash colored urine.He has OG in place infusing Nephro at goal rate 25 ml/hr and 30 ml water flushes Q4. His temp 95.6 and has lots of warm blankets. Wound right distal toes and positive pulses right distal, marked on foot. Patient has 3-4+ pitting to distal extremities. Patient has Dialysis cath to [facility], dressing intact and site WNL's. Family arrived in room at bedside.
--- NOTE | 2021-10-21 10:03 | NUR ---
Patient remains intubated and sedated. Tolerated am meds through OG . Patient has 300 ml residual and re-instilled. patient did not tolerate wean to spon. mode. Repositined to left side. No other changes to vent or gtt's.
--- NOTE | 2021-10-21 12:57 | NUR ---
Family remains at bedside. Patient remains unchanged. Repositioned and oral care. No changes to vent or gtt's. Dr Jones stated no more weaning to day.
--- NOTE | 2021-10-21 15:05 | NUR ---
Dialysis continues and is slightly hypotensive. No changes to vent settings. Increased dopamine to 5 mcg/kg/min. Family remains at bedside. No change to neuro on sedation.
--- NOTE | 2021-10-21 17:00 | NUR ---
Dialysis finished and they were able to pull 3L off. PICC line infusing Propofol at 30 mcg/kg/min, Dopamine at 1 mcg/kg/min, NS TKO. OG infusing Nephro at 20 ml/hr and 30 ml water flush q4. Díaz draining to gravity sears 300 ml kash colored urine out, no stool this shift. Pulses by doppler to RLE.No neuro changes, withdrawls with oral care and painful stimuli. Family remains at bedside.
--- NOTE | 2021-10-21 21:44 | NUR ---
2044 PATIENT IS HEAVILY SEDATED, WEAK GAG REFLEX, DOES NOT RESPOND TO NOXIOUS OR VERBAL STIMULI, PROPOFOL TITRATED DOWN TO 25MCG/KG/MIN
--- NOTE | 2021-10-21 21:50 | NUR ---
ASSUMED CARE OF PATIENT AT 1900 PT IS SEDATED AND INTUBATED POSITIONED ON RIGHT SIDE. PROPOFOL INFUSING @30MCG/KG/MIN, ETT 8.0, 24CM @ TEETH, VENT SETTINGS AC/PC 20, PI 18, PEEP 10, FIO2 30%, 02 SATS HAVE BEEN IN THE 90s. DOPAMINE 1MCG/KG/MIN, NS TKO 10MLS/HR, THROUGH PICC LINE IN SHANICE. PT HAS RIJ FOR DIALYSIS. OG IN PLACE INFUSING NEPHRO @25MLS/HR GOAL RATE, 18FR IN PLACE AND DRAINING YELLOW URINE TO GRAVITY. PT HAS 3-4+ EDEMA IN ALL EXTREMITIES, PENIS, AND SCROTUM. PT HAS ULCERS ON RIGHT HEEL AND TOES. Pritesh BECKWITH PERFOMED 10/18/[address] PT HAS MULTIPLE BLANKETS IN PLACE TO MAINTAIN TEMPERATURE.
--- NOTE | 2021-10-21 22:11 | NUR ---
2200, PT REPOSITIONED AND WAS RESPONDING TO NOXIOUS STIMULI BUT NOT TO VERBAL COMMANDS. PROPOFOL TITRATED DOWN TO 20MCG/KG/MIN.
--- NOTE | 2021-10-21 22:43 | NUR ---
PT APPEARS QUIET AND COMFORTABLE. HR REMAINS IN THE 70s, SPO2 >96%. NO CHANGES NOTED.
--- NOTE | 2021-10-22 00:27 | NUR ---
PT RESTING COMFORTABLY, DOES NOT SEEM TO BE IN DISCOMFORT OR PAIN, WILL MOVE HIS HEAD SLIGHTLY TO STIMULI, NODDED HIS HEAD WHEN ASKED TO OPEN HIS EYES BUT WAS UNABLE, NODDED HIS HEAD IN AGREEMENT TO ORAL CARE, DID NOT RESPOND TO ORAL CARE. DOPAMINE PUT ON SB, PROPOFOL TITRATED DOWN TO 15MCG/KG/MIN. EDEMA IS WORSE ON ALL EXTREMITIES, LUNG SOUNDS ARE DIMINISHED BUT MORE CLEAR.
--- NOTE | 2021-10-22 02:41 | NUR ---
PATIENT TOLERATED REPOSITIONING AND BOOSTING, NO PITTING UNDER RESTRAINTS, TOLERATING VENT, NO COUGHING, PROPOFOL TITRATED DOWN TO 10MCG/KG/MIN
--- NOTE | 2021-10-22 03:02 | NUR ---
NEW BOTTLE OF PROPOFOL AND LINE
--- NOTE | 2021-10-22 03:49 | NUR ---
BED BATH PERFORMED, PT MOVING ARMS, HEAD, AND GRIMACING, PROPOFOL TITRATED UP TO 15 MCG/KG/HR.
[2021-10-22 04:18] LABS: BASOPHILS ABSOLUTE AUTO 0.02 K/mm3 (0.00-0.23); BASOPHILS PERCENT AUTO 0 % (0-2); EOSINOPHILS ABSOLUTE AUTO 0.24 K/mm3 (0.00-0.68); EOSINOPHILS PERCENT AUTO 2 % (0-6); Hematocrit 18.5 % (37.0-53.0); Hemoglobin 6.2 g/dL (13.5-17.5); IMMATURE GRAN ABSOLUTE AUTO 0.13 K/mm3 (0.00-0.10); IMMATURE GRAN PERCENT AUTO 1 % (0-1); LYMPHOCYTES ABSOLUTE AUTO 0.65 K/mm3 (0.84-5.20); LYMPHOCYTES PERCENT AUTO 6 % (21-46); MONOCYTES ABSOLUTE AUTO 0.52 K/mm3 (0.16-1.47); MONOCYTES PERCENT AUTO 5 % (4-13); Mean Corpuscular HGB 31.3 pg (26.0-34.0); Mean Corpuscular HGB Conc 33.5 g/dL (31.5-36.5); Mean Corpuscular Volume 93 fL (80-100); Mean Platelet Volume 10.3 fL (9.1-12.4); NEUTROPHILS ABSOLUTE AUTO 9.66 K/mm3 (1.96-9.15); NEUTROPHILS PERCENT AUTO 86 % (41-73); Platelet Count 189 K/mm3 (150-400); RDW Coefficient Variation 14.1 % (11.7-14.2); RDW Standard Deviation 47.8 fL (35.1-46.3); Red Blood Cell Count 1.98 M/mm3 (4.30-5.90); White Blood Cell Count 11.22 K/mm3 (4.00-11.30)
[2021-10-22 04:34] LABS: Albumin, Blood 1.6 g/dL (3.4-5.0); Anion Gap 8 mmol/L (6-16); Blood Urea Nitrogen 86 mg/dL (8-24); Bun/Creatinine Ratio 18.9 (12.0-20.0); CO2, Blood 28 mmol/L (21-32); Calcium, Blood 6.1 mg/dL (8.5-10.1); Chloride, Blood 101 mmol/L (98-108); Creatinine, Blood 4.56 mg/dL (0.60-1.20); Glomerular Filtration Rate 13 (60-); Glucose, Blood 135 mg/dL (70-99); Magnesium, Blood 1.6 mg/dL (1.6-2.4); Phosphorus, Blood 6.9 mg/dL (2.5-4.9); Potassium, Blood 4.3 mmol/L (3.5-5.5); Sodium, Blood 137 mmol/L (136-145)
--- NOTE | 2021-10-22 05:52 | NUR ---
UPDATE PT FOUND TO HAVE ETT AT 22CM OUT OTHER THAN THE 24CM OUT DOCUMENTED EARLIER. NOTIFIED RT WHO WAS ABLE TO ADVANCE TUBE TO 25CM. CHEST XRAY TAKEN AND DR ARNOLD REVIEWED; HE INSTRUCTED FOR RT TO ADVANCE TUBE AN ADDITIONAL 1.5CM AND HAVE A FOLLOW UP CHEST XRAY TOMORROW (10/23/21). RT NOTIFIED AND ADVANCED TUBE.
--- NOTE | 2021-10-22 06:17 | NUR ---
SHIFT SUMMARY PT REMAINS SEDATED AND INTUBATED, PROPOFOL TITRATED DOWN OVERNIGHT TO 10MCG/KG/MIN, PATIENT BEGAN MOVING MOUTH AND GRIMACING DURING BED BATH AND REPOSITIONING, PROPOFOL BACK UP TO 30MCG/KG/MIN, PATIENT RELAXED, RT CALLED DUE TO ETT TUBE NO LONGER AT 24CM AT THE TEETH, RT REPOSITIONED TUBE AT 25CM @ TEETH, RADIOGRAPH SENT TO [place], RT CAME BACK AND REPOSITIONED AT 26CM @ THE TEETH, PATIENT TOLERATED WELL, DOPAMINE PUT ON SB @0015, PT SBP IN THE 110-120s, HR IN THE 70s, SPO2 >94%, VENT SETTINGS AC/PC 20/16/8/30%, NS TKO 10/MLS/HR, OG INFUSING NEPHRO @25MLS/HR GOAL RATE, PATENT AND DRAINED 300MLS CLEAR URINE, PT REMAINS 3-4+ EDEMA IN ALL EXTREMITIES, PENIS, AND SCROTUM. CONTINUE TO MONITOR UNTIL REPORT TO ONCOMING JUAN
--- NOTE | 2021-10-22 07:29 | NUR ---
Received report from Lilo MARTINEZ. Patient is intubated and sedated. He has 8.0 ET and is 26 and teeth with vent settings of AC/PC 20/16/30/8 and sats 95%. He withdrawls from painful stimuli. He has OG in place with Nephro infusing at 20 ml/hr and 30 ml water flushes Q4. He has PICC line to [facility] and is infusing Propofol at 30 mcg/kg/min, NS TKO, and Dopamine remains on SB. He has RLE + pulses by doppler. He has RIJ dialysis cath dressing intact and plans for dialysis today. See Pics for wounds to RLE. He has temp 98.1.
--- NOTE | 2021-10-22 09:47 | NUR ---
Dialysis is in room getting started. When repositioning his volumes started to decrease and RT changed vent settings to AC/VC+ 16/400/30/8 and sats low to mid 90%'s and increased FiO2 to 40% as sats started to decrease. Dr Briceño writing orders for PRBC's
--- NOTE | 2021-10-22 11:30 | NUR ---
Patient continues with dialysis and will be getting 1 unit PRBC. He is receiving Albumin as well, goal is 3L off. Dopamine back on for Dialysis at 4 mcg/kg/min and systolic 130's. No changes to vent settings or sedation. He is opening eye and knodding yes and no to questions and squeezing hands.
--- NOTE | 2021-10-22 13:29 | NUR ---
Patient done with dialysis. Dopamine back on SB, VSS no changes to vent settings. Patient opens eyes slowly, family at bedside. No other significant changes.
--- NOTE | 2021-10-22 15:30 | NUR ---
Patient continues to rest after Dialysis. Vent settings AC/VC= 16/400/30/8 and sats 93%. Propofol at 30 mcg/kg/min and NS TKO. TF are infusing through OG at 20 mlhr of Nephro goal rate, with 30 mlQ4 water flushes. he opens eyes to verbal stimuli and answers simple questions. Right LR + pulses distally.
--- NOTE | 2021-10-22 17:45 | NUR ---
Patient intubated and sedated. He arouses to verbal stimuli and is able to answer simple questions. He has 8.0 Et and is 26cm at teeth with vent settings of AC/VC+ 16/400/30/8 and sats 97%. He has OG that is infusing Nephro at 20 ml/hr goal rate and 30 mlwater flushes q4. He has 200 ml yellow urine and 2500 off with dialysis today, still no stool. He has PICC to [facility] and is infusing propofol at 30 mcg/kg/min, NS TKO, Dopamine on SB since dialysis. at bedside. he received 1 unit PRBC with dialysis today.
[2021-10-22 18:27] LABS: Hematocrit 20.3 % (37.0-53.0); Hemoglobin 6.9 g/dL (13.5-17.5)
--- NOTE | 2021-10-22 22:00 | NUR ---
ASSUMED CARE AT 1900 PT LAYING IN BED INTUBATED WITH VENT SETTINGS AC/VC+ 20/400/8/30%. PT REACTIVE TO NOXIOUS STIMULI AND REPOSITIONING; OPENS EYES DURING THESE ACTION; WAS STARTING TO BITE ON ETT MORE ALONG WITH FURROWED BROW; PROPOFOL TITRATED UP TO 40MCG/KG/MIN. HR 70-80'S. SBP STABLE. AFEBRILE. 3+ PITTING EDEMA NOTED TO ALL EXTREMITIES; WEEPING NOTED TO SHANICE. NEPRO INFUSING VIA OG AT 20ML/HR (GOAL) WITH 30ML WATER FLUSHES Q4HR; LARGE LOOSE BM NOTED AT BEGINING OF SHIFT. IN PLACE AND DRAINING TO GRAVITY. POST-OP SOCK TO LT BKA CHANGED DUE TO BEING SOILED. SEE SHIFT ASSESSMENT FOR FULL ASSESSMENT.
[2021-10-23 00:08] LABS: HBSAG SCREEN Negative (Negative); HCV AB <0.1 (0.0-0.9); HEP A AB, IGM Negative (Negative); HEP B CORE AB, IGM Negative (Negative)
[2021-10-23 05:29] LABS: BASOPHILS ABSOLUTE AUTO 0.04 K/mm3 (0.00-0.23); BASOPHILS PERCENT AUTO 0 % (0-2); EOSINOPHILS ABSOLUTE AUTO 0.18 K/mm3 (0.00-0.68); EOSINOPHILS PERCENT AUTO 1 % (0-6); Hematocrit 23.9 % (37.0-53.0); Hemoglobin 8.1 g/dL (13.5-17.5); IMMATURE GRAN ABSOLUTE AUTO 0.27 K/mm3 (0.00-0.10); IMMATURE GRAN PERCENT AUTO 2 % (0-1); LYMPHOCYTES ABSOLUTE AUTO 1.47 K/mm3 (0.84-5.20); LYMPHOCYTES PERCENT AUTO 11 % (21-46); MONOCYTES ABSOLUTE AUTO 0.91 K/mm3 (0.16-1.47); MONOCYTES PERCENT AUTO 7 % (4-13); Mean Corpuscular HGB 31.4 pg (26.0-34.0); Mean Corpuscular HGB Conc 33.9 g/dL (31.5-36.5); Mean Corpuscular Volume 93 fL (80-100); Mean Platelet Volume 11.3 fL (9.1-12.4); NEUTROPHILS PERCENT AUTO 78 % (41-73); Platelet Count 144 K/mm3 (150-400); RDW Coefficient Variation 15.7 % (11.7-14.2); RDW Standard Deviation 52.7 fL (35.1-46.3); Red Blood Cell Count 2.58 M/mm3 (4.30-5.90); White Blood Cell Count 12.87 K/mm3 (4.00-11.30)
[2021-10-23 05:58] LABS: Albumin, Blood 1.8 g/dL (3.4-5.0); Anion Gap 8 mmol/L (6-16); Blood Urea Nitrogen 66 mg/dL (8-24); Bun/Creatinine Ratio 17.9 (12.0-20.0); CO2, Blood 28 mmol/L (21-32); Calcium, Blood 6.4 mg/dL (8.5-10.1); Chloride, Blood 101 mmol/L (98-108); Creatinine, Blood 3.68 mg/dL (0.60-1.20); Glomerular Filtration Rate 17 (60-); Glucose, Blood 138 mg/dL (70-99); Magnesium, Blood 1.8 mg/dL (1.6-2.4); Phosphorus, Blood 5.9 mg/dL (2.5-4.9); Potassium, Blood 3.5 mmol/L (3.5-5.5); Sodium, Blood 137 mmol/L (136-145)
--- NOTE | 2021-10-23 07:04 | NUR ---
END OF SHIFT SUMMARY NO ACUTE EVENTS OVERNIGHT. PT CONT TO BE INTUBATED WITH VENT SETTINGS AC/VC+ 20/400/8/30%. PT SEDATED WITH PROPOFOL INFUSING AT 40MCG/KG/MIN, CONT TO BE REACTIVE TO PAINFUL AND NOXIOUS STIMULI. AFEBRILE. HR 60-70'S. SBP 100-120. NEPRO INFUSING AT GOAL VIA OG; RESIDUALS <100ML; PT HAD TWO LARGE LIQUID BM'S THIS SHIFT. IN PLACE WITH 100ML URINE OUTPUT. ONE UNIT OF PRBC'S GIVEN AT BEGINNING OF SHIFT. REPORT GIVEN TO CHARLOTTE Trinh
--- NOTE | 2021-10-23 07:24 | NUR ---
Received report from Lilo MARTINEZ. Patient is intubated and sedated with 8.0 Et and 26 cm at teeth with vent settings of AC/VC+ 20/400/30/8 and sats 95%. He has OG in place infusing Nepro at 20 ml/hr goal rate and 30 mlwater flushes q4. He has PICC line to SHANICE dressing intact and site WNL's and is infusing Propofol at 40 mcg/kg/min, NS TKO. He hahs 18Fr rodriguez Draining to gravity small amounts of yellow urine. He has brownish/green liquid stool and placed rectal tube afyer cleaning him up and changing linen, repositioned. He is LBKA and sock and dressing C/D/I. Right LE has positive pulses bu doppler. See pics for mwounds to right foot.
--- NOTE | 2021-10-23 09:29 | NUR ---
Patient remains sedated and intubated. He tolerated meds PT. Started to wean propofol for weaning trial. at bedside. No changes to vent or gtt's other than stated. Changed PICC SHANICE dressing.
--- NOTE | 2021-10-23 11:30 | NUR ---
Dr Amaya in room assessing patient. Patient has been on Spon. mode since 1000, PS and sats 95% and continues to do well, Propofol has been off since 1000 as well and he is arousable and answering questions. Patient is not having dialysis today and Dr Amaya wants to start Lasix gtt. VSS. Family at bedside and spoke with Dr Amaya. Repositioned.
--- NOTE | 2021-10-23 14:02 | NUR ---
Patient remains awake on vent without sedation spon.mode PS8 30/8 and sats 93% and tolerating well. Propofol remains off and Lasix gtt finished, [place] TKO. RLE + pulses. Family at bedside . Díaz and rectal tube patent. Repositioned q2.
--- NOTE | 2021-10-23 18:02 | NUR ---
Patient remains intubated and sedated with 8.0 ET and 26cm at teeth with vent settings AC/VC+ 20/400/30/8 and sats 94%. PICC line infusing Propofol at 40 mcg/kg/min, NS TKO. OG infusing Nepro at 20 ml/hr and 30 ml Q4 water flushes. Patient had 300 mls urine from rodriguez and 75 ml liquid stool from rectal tube. Patient resting quietly since placed back on sedation. family has gone home for the night.
--- NOTE | 2021-10-23 19:30 | NUR ---
PT REPORT RECEIVED. BEDSIDE SAFETY CHECK COMPLETED, ASSUMED PT CARE. PT VENTED AND SEDATED WITH PROPOFOL RUNNING AT [address] EKG ORDER PLACED BY DAY SHIFT RN PER ORDER FROM DR. ANDERSON. WILL CONTINUE TO MONITOR. ETT IN PLACE AT 26CM. VC-AC, 30%, PEEP-8, VT-400, RR-20.
--- NOTE | 2021-10-23 19:46 | NUR ---
1939- OFF GOING RN, CHARLOTTE, SPOKE WITH DR. ANDERSON FROM CARDIOLOGY REGARDING THE PT'S EKG RHYTHM AND STATED THAT DR. ANDERSON WILL PLAN ON SEEING THE PT IN THE MORNING AND TO CALL HIM IF THERE ARE FURTHER CHANGES OR MORE FREQUENCY OF BRADYCARDIA.
--- NOTE | 2021-10-23 20:45 | NUR ---
PT'S HR DIPPING BELOW 40BPM EVERY FEW MINUTES. CHARGE NURSE CONSULTED AND HOSPITALIST, DR. PICKARD CALLED WELL TOBACCO BUYER, DR. ANDERSON. ORDERS RECIEVED FOR ATROPINE AND DOPAMINE TO MAINTAIN HR>50BMP.
[2021-10-24 04:06] LABS: BASOPHILS ABSOLUTE AUTO 0.05 K/mm3 (0.00-0.23); BASOPHILS PERCENT AUTO 0 % (0-2); EOSINOPHILS PERCENT AUTO 1 % (0-6); Hematocrit 27.6 % (37.0-53.0); IMMATURE GRAN ABSOLUTE AUTO 0.37 K/mm3 (0.00-0.10); IMMATURE GRAN PERCENT AUTO 2 % (0-1); LYMPHOCYTES ABSOLUTE AUTO 1.42 K/mm3 (0.84-5.20); LYMPHOCYTES PERCENT AUTO 9 % (21-46); MONOCYTES PERCENT AUTO 6 % (4-13); Mean Corpuscular HGB 30.5 pg (26.0-34.0); Mean Corpuscular HGB Conc 32.6 g/dL (31.5-36.5); Mean Corpuscular Volume 94 fL (80-100); Mean Platelet Volume 11.4 fL (9.1-12.4); NEUTROPHILS ABSOLUTE AUTO 13.32 K/mm3 (1.96-9.15); NEUTROPHILS PERCENT AUTO 81 % (41-73); Platelet Count 175 K/mm3 (150-400); RDW Coefficient Variation 15.7 % (11.7-14.2); RDW Standard Deviation 53.5 fL (35.1-46.3); Red Blood Cell Count 2.95 M/mm3 (4.30-5.90); White Blood Cell Count 16.36 K/mm3 (4.00-11.30)
[2021-10-24 04:30] LABS: Albumin, Blood 1.8 g/dL (3.4-5.0); Anion Gap 9 mmol/L (6-16); Blood Urea Nitrogen 77 mg/dL (8-24); Bun/Creatinine Ratio 19.1 (12.0-20.0); CO2, Blood 28 mmol/L (21-32); Calcium, Blood 6.5 mg/dL (8.5-10.1); Chloride, Blood 99 mmol/L (98-108); Creatinine, Blood 4.03 mg/dL (0.60-1.20); Glomerular Filtration Rate 15 (60-); Glucose, Blood 145 mg/dL (70-99); Magnesium, Blood 1.7 mg/dL (1.6-2.4); Potassium, Blood 3.6 mmol/L (3.5-5.5); Sodium, Blood 136 mmol/L (136-145)
--- NOTE | 2021-10-24 06:59 | NUR ---
SHIFT SUMMERY: PT REMIANS SEDATED ON PROPOFOL AT 40. VC-AC WITH FiO2 OF 50%. DOPAMINE RUNNING AT 2MCG/KG/MIN TO MAINTIAN HR>50. VSS OVER NIGHT WITH OCCASIONAL NEED FOR ETT SUCTIONING WITH SMALL TO MODERATE SECREATIONS. LASIX Q6H HAS PRODUCED A TOTAL OF 600ML OF URINE. PT STILL VERY EDEMETOUS WITH WEEPING AT VARIOUS PUNCTURE SITES.
--- NOTE | 2021-10-24 09:37 | NUR ---
AM NOTE.... ASSUMED CARE OF PT AT 0700, THE PT IS INTUBATED AND SEDATED, PROPOFOL DRIP IS RUNNING AT 40MCG/KG/HR THE PT IS SEDATED BUT WILL OPEN HIS EYES AND PULL AWAY FROM ORAL CARE. THE PT'S ET TUBE IS 8.0 AND 26 AT THE TEETH/GUMS, VENT SETTINGS ARE AC/VC:20/400/8/50% WITH O2 SATS >95% L/S DIM T/O. VERY MINIMAL SECRETIONS SUCTIONED VIA THE ET TUBE PER RT. THE PT'S OG TUBE IS PATENT AND RUNNING NEPHRO AT 20MLS/HR WITH 10 MLS OF RESIDUALS NOTED. BT PRESENT AND HYPOACTIVE, ABD HAS MODERATE DISTENTION AND IS FIRM TO PALPATION. THE PT IS IN AFIB IN THE 60'S-70'S WITH A DOPAMINE DRIP RUNNING AT 2MCG/KG/MIN. THE PT'S BP IS STABLE WITH SBPs IN THE 140'S-150'S. THE PT HAS SEVERE 4+ EDEMA TO HIS BUE, BLE, SCROTUM AND TORSO. THE PT'S IS PATENT AND DRAINING TO GRAVITY. THE PT'S RECTAL TUBE IS PATENT AND DRAINING TO GRAVITY. DR. GUTIERREZ AT THE BEDSIDE TO ASSESS THE PT THIS AM, NO NEW ORDERS. WILL CONTINUE TO MONITOR.
--- NOTE | 2021-10-24 13:07 | NUR ---
PT UPDATE..... THE PT WAS STARTED ON DIALYSIS IN THE ROOM THE PT'S BPs WERE SOFT WITH SBPs IN THE 90'S TO LOW 100'S. THE PLAN FOR DIALYSIS IS TO REMOVE 3.5L IF POSSIBLE, DR. GUTIERREZ WAS NOTIFIED AND VERBAL ORDERS GIVEN TO RESTART THE DOPAMINE DRIP TO PREVENT HYPOTENSION DURING DIALYSIS. WILL CONTINUE TO MONITOR.
--- NOTE | 2021-10-24 17:59 | NUR ---
SHIFT SUMMARY.... NO ACUTE NEGATIVE CHANGES NOTED THIS SHIFT, THE PT HAD DIALYSIS AND 5L WERE REMOVED. THE PT WAS ON THE DOPAMINE DURING DIALYSIS AND THIS WAS STOPPED AFTER DIALYSIS WAS DONE. THE PT'S VS STABLE NO EPISODES OF BRAYDCARDIA THIS SHIFT. THE PT DID HAVE AN EPISODE OF HYPOXIA DOWN TO 71% WITH TITLE VOLUME LOSS AFTER HE WAS TURNED SHARPLY SIDE TO SIDE DURING PEPE CARE. A LARGE AMOUNT OF THICK WHITE SECRETIONS WERE REMOVED AND THE PT'S O2 SATS AND TITLE VOLUME IMPROVED. THE PT'S RECTAL TUBE WAS REMOVED AND REPOSITIONED TO HELP PREVENT LEAKING. THE PT'S HAS BEEN AT THE BEDSIDE T/O THIS SHIFT. WHILE OFF SEDATION THE PT WAS ABLE TO FOLLOW DIRECTIONS AND NOD HIS HEAD TO QUESTIONS, BUT ALSO BECAME UNCOMFORTABLE AND CHEWED ON THE ET TUBE. THE PT'S IS PATENT AND DRAINING TO GRAVITY. WILL CONTINUE TO MONITOR UNTIL REPORT IS GIVEN TO ONCOMING RN.
--- NOTE | 2021-10-24 19:30 | NUR ---
PT REPORT RECEIVED, SAFETY CHECK COMPLETED. ASSUMED PT CARE. PT ON THE VENTILATOR WITH ETT IN PLACE. PT AWAKE ON PROPOFOL AT 20, VC-AC 20/400/40/5. PT LOCALIZING ETT, SO WILL KEEP SOFT RESTRAINTS IN PLACE FOR NOW.
[2021-10-25 03:27] LABS: Hematocrit 23.7 % (37.0-53.0); Hemoglobin 7.8 g/dL (13.5-17.5)
[2021-10-25 03:52] LABS: Albumin, Blood 1.6 g/dL (3.4-5.0); Anion Gap 8 mmol/L (6-16); Blood Urea Nitrogen 60 mg/dL (8-24); CO2, Blood 29 mmol/L (21-32); Calcium, Blood 6.7 mg/dL (8.5-10.1); Chloride, Blood 102 mmol/L (98-108); Creatinine, Blood 3.33 mg/dL (0.60-1.20); Glomerular Filtration Rate 19 (60-); Glucose, Blood 144 mg/dL (70-99); Magnesium, Blood 1.7 mg/dL (1.6-2.4); Phosphorus, Blood 6.1 mg/dL (2.5-4.9); Potassium, Blood 3.4 mmol/L (3.5-5.5); Sodium, Blood 139 mmol/L (136-145)
--- NOTE | 2021-10-25 06:57 | NUR ---
SHIFT SUMMERY: PT ABLE TO AWAKE AND FOLLOW COMANDS. PROPOFOL RUNNING AT 35. PT REMAINS VENTED AC-AC. PT DROPPED SPO2 TO 82% WHEN TURNED ON HIS SIDE FOR PT CARE. FEW SECRETIONS NOTED.
--- NOTE | 2021-10-25 07:46 | NUR ---
Patient rmains intubated and sedated with 8.0 ET and is 26 cm at teeth with vent settings of AC/VC 20/400/40/5 with sats 98%. He awakens slightly and opens eyes. He has PICC line to SHANICE dressing intact and site WNL's and is infusing Propofol at 35 mcg/kg/min and NS TKO. He has OG in place and is infusing Nepro at 20 ml/hr and 30 ml water flushes q4. He has 18Fr rodriguez draining to gravity yellow urine small amounts. He also has rectal tube in place with green/brown liquid stool. Scrotal area 3+ edema and small wound on penis, see pic. Distal UE's 3+ pitting edema and are doing better with increased dialysis. Temporal temp 97.6. RLE + distal pulses. healing wounds to toes, see pics. LBKA dressing intact and C/D. at bedside.
--- NOTE | 2021-10-25 10:11 | NUR ---
Dialysis in room getting started. No changes to vent or gtt setting. Patient arouses to verbal stimuli. Díaz and rectal tube patent. remains at bedside.
--- NOTE | 2021-10-25 15:55 | NUR ---
Spiritual Care visit. Pt. is on a ventelator but is not responsive. Rosangela is present. Re-established rapport with mirian'. Mirian' is encouraged that pt. is tolerating dialysis, and that he has maintained well under thr care of ICU. Mirian' verbalized gratitude for the short spiritual care visit.
--- NOTE | 2021-10-25 16:00 | NUR ---
Placed propofol on SB after Dialysis abnd RT place on Spon mode PS 05/06/5 and sats 94%. VSS after dialysis and was able to pull 5.5 Liters off. WWaited an hour of rest prior to changing vent. remains at bedside. Patient almost fully awake and communicating with
--- NOTE | 2021-10-25 18:18 | NUR ---
Patient remains intubated and off sedation while on spon. mode PS10/30/5 and sats 96%. He has PICC line infusinglasix drip current and Propofol is on SB. RLE + pulses. Patient awakens easily to verbal; stimuli and answers questions yes or no. OG infusing TF nepro at 20 ml/hr and 30 mlQ4 water flushes. He is able to move bilateral UE's well. remaisn at bedside. Díaz had 500 yellow urine out and rectal tube has 150 ml/out. Passive ROM. Restraints UE's bilaterally.
--- NOTE | 2021-10-25 19:30 | NUR ---
PT REPORT RECEIVED, SAFETY CHECK COMPLETED, ASSUMED PT CARE. PT LYING IN BED AWAKE AND RESTLESS. PT STATES PAIN AND CPOT ELEVATED, PAIN MEDICATION GIVEN AND PROPOFOL RESTARTED FOR THE NIGHT. RESTRAINTS IN PLACE, VSS.
[2021-10-26 04:10] LABS: BASOPHILS ABSOLUTE AUTO 0.04 K/mm3 (0.00-0.23); BASOPHILS PERCENT AUTO 0 % (0-2); EOSINOPHILS ABSOLUTE AUTO 0.18 K/mm3 (0.00-0.68); EOSINOPHILS PERCENT AUTO 1 % (0-6); Hematocrit 25.7 % (37.0-53.0); Hemoglobin 8.4 g/dL (13.5-17.5); IMMATURE GRAN ABSOLUTE AUTO 0.09 K/mm3 (0.00-0.10); IMMATURE GRAN PERCENT AUTO 1 % (0-1); LYMPHOCYTES ABSOLUTE AUTO 1.25 K/mm3 (0.84-5.20); LYMPHOCYTES PERCENT AUTO 10 % (21-46); MONOCYTES ABSOLUTE AUTO 0.93 K/mm3 (0.16-1.47); MONOCYTES PERCENT AUTO 7 % (4-13); Mean Corpuscular HGB 31.2 pg (26.0-34.0); Mean Corpuscular HGB Conc 32.7 g/dL (31.5-36.5); Mean Corpuscular Volume 96 fL (80-100); Mean Platelet Volume 11.5 fL (9.1-12.4); NEUTROPHILS PERCENT AUTO 81 % (41-73); Platelet Count 217 K/mm3 (150-400); RDW Coefficient Variation 15.3 % (11.7-14.2); Red Blood Cell Count 2.69 M/mm3 (4.30-5.90); White Blood Cell Count 12.89 K/mm3 (4.00-11.30)
[2021-10-26 04:27] LABS: Albumin, Blood 1.6 g/dL (3.4-5.0); Anion Gap 7 mmol/L (6-16); Blood Urea Nitrogen 52 mg/dL (8-24); Bun/Creatinine Ratio 18.2 (12.0-20.0); CO2, Blood 31 mmol/L (21-32); Calcium, Blood 7.3 mg/dL (8.5-10.1); Chloride, Blood 100 mmol/L (98-108); Creatinine, Blood 2.86 mg/dL (0.60-1.20); Glomerular Filtration Rate 22 (60-); Glucose, Blood 152 mg/dL (70-99); Magnesium, Blood 1.6 mg/dL (1.6-2.4); Phosphorus, Blood 5.6 mg/dL (2.5-4.9); Potassium, Blood 3.4 mmol/L (3.5-5.5); Sodium, Blood 138 mmol/L (136-145)
--- NOTE | 2021-10-26 06:36 | NUR ---
SHIFT SUMMERY: PT INITIALLY VERY ALERT AT THE START OF SHIFT, TOTALLY OFF OF SEDATION AND ABLE TO FOLLOW COMMANDS. PT SEEMED TO BE INCREASINGLY RESTLESS SO PROPOFOL WAS RESTARTED AT 35 THEN DECREASED TO 30. PT ABLE TO WAKE AND FOLLOW COMMANDS THROUGHOUT THE NIGHT. PT WAS SWITCHED BACK TO VC-AC WITH R20, VT400, P5 AND 40%. VSS OVER NIGHT, PRODUCED 740 OF MOSTLY YELLOW URINE, TWO SMALL BLOOD CLOTS WERE NOTED IN THE TUBING WITH SLIGHTLY PINK INGED URINE THAT RESOLVED WITHIN A FEW MINUTES. TF REMAINS AT GOAL OF 20ML/HR. RECTAL TUBE IN PLACE AND DRAINED 300 OF LIQUID STOOL.
--- NOTE | 2021-10-26 07:30 | NUR ---
ASSUMPTION OF CARE RECEIVED REPORT FROM SANG MARTINEZ AT 0710, ASSUMED CARE OF PATIENT. PATIENT INTUBATED WITH VENT SETTINGS AC/VC 20/400/5/40%, SP02 ABOVE 95%. PROPOFOL INFUSING AT 30MCG/KG, DECREASED TO 25MCG/KG UPON ASSESSMENT WITH AT BEDSIDE TO BEGIN ASSESSING NEURO STATUS. NEPRO TF INFUSING AT 20ML/HR VIA OG. PICC LINE TO LUE WITH DRESSING C/D/I. LEFT BKA WITH KEON TO WOUND SITE, C/D/I AND PROTECTIVE SOCK IN PLACE. GENERALIZED WEAPING EDEMA THROUGHOUT NOTED. RECTAL TUBE IN PLACE WITH BROWN, LIQUID STOOL DRAINING. EDUCATION REGARDING PLAN FOR THE DAY DISCUSSED WITH AT BEDSIDE. WILL REVIEW ORDERS AND TREAT PRESCRIBED.
--- NOTE | 2021-10-26 09:52 | NUR ---
DIALYSIS UNABLE TO ASPIRTATE VENOUS PORT. ORDERED CATHFLO. WILL INSTILL WHEN ARRIVES.
--- NOTE | 2021-10-26 11:48 | NUR ---
DIALYSIS ASPERATED THE LUMEN (PACKED WITH CATHFLO). UNABLE TO GET IT TO FLOW FREELY. PUT ANOTHER CATHFLO IN EACH LUMEN. THE MAGISTRATE ASSISTANT IS GOING TO CHECK AROUND 1400 AND GIVE ME A CALL. IF IT WORKS I WILL COME IN AND DIALYZE HIM THIS PM. IF NOT THEY WILL PUT MORE CATHFLO IN FOR OVERNIGHT.
--- NOTE | 2021-10-26 18:23 | NUR ---
SHIFT SUMMARY PATIENT SEDATED ON PROPOFOL OF 30MCG, DECREASED TO 20MCG WHILE USING FENTANYL PRN FOR COMFORT. PATIENT ALERT, RESPONDS TO QUESTIONS BY NODDING HEAD YES OR NO AND GIVING THUMBS UP. TO BEDSIDE, COMMUNICATING WELL WITH PATIENT AND PROVIDING A CALM PRESENCE. DIALYSIS PROVIDED AFTER CATHFLO NEEDED TO OPEN DIALYSIS PORT. FI02 DECREASED TO 30% FROM 40%, SATS MAINTAINED ABOVE 95%. CHEST XRAY COMPLETED WITH NOTED IMPROVEMENTS PER DR. GUTIERREZ. AND RECTAL TUBE REMAINED PATENT. VITALS CURRENTLY STABLE. WILL CONTINUE TO MONITOR AND REPORT TO ONCOMING RN.
--- NOTE | 2021-10-26 18:35 | NUR ---
Spiritual Care Visit. Pt. is still on ventilator. Mirian' is present. Mirian' displays evidence of encouragement for thew progressin the Pts. condition. With a calming influence and pastoral care, mirian' displays evidence of hope. Mirian' verbalized the prospect of extubation in the next day or so. Mirian' verbalized gratitude for the spiritual care visit.
--- NOTE | 2021-10-26 22:30 | NUR ---
SHIFT ASSESSMENT ASSUMED CARE OF PT @ 1900. REPORT RECEIVED FROM LINNEA Cherry RN. PT INTUBATED AND LIGHTLY SEDATED. OPENS EYES SPONTANEOUSLY. WILL GESTURE WITH HANDS TO RELAY NEEDS. SHAKING HEAD YES/NO TO QUESTIONING. MOVING EXTREMITIES TO REQUEST. L BKA DRESSING C/D/I. PT ON 20MCG/KG/MIN PROPOFOL INITIALLY, TITRATED UP TO 30 AT THIS TIME HE WAS VERY RESTLESS. VENT SETTINGS VC-20/400/30%/ PEEP-5 c O2 SATS >95%. TF INFUSING @ GOAL. CATH PATENT, DRAINING YELLOW URINE. RECTAL TUBE WITH LIQUID BROWN STOOL. WILL CONTINUE TO MONITOR CLOSELY.
[2021-10-27 03:46] LABS: BASOPHILS ABSOLUTE AUTO 0.06 K/mm3 (0.00-0.23); BASOPHILS PERCENT AUTO 0 % (0-2); EOSINOPHILS ABSOLUTE AUTO 0.26 K/mm3 (0.00-0.68); EOSINOPHILS PERCENT AUTO 2 % (0-6); Hematocrit 25.6 % (37.0-53.0); Hemoglobin 8.2 g/dL (13.5-17.5); IMMATURE GRAN PERCENT AUTO 1 % (0-1); LYMPHOCYTES ABSOLUTE AUTO 1.13 K/mm3 (0.84-5.20); LYMPHOCYTES PERCENT AUTO 8 % (21-46); MONOCYTES ABSOLUTE AUTO 0.97 K/mm3 (0.16-1.47); MONOCYTES PERCENT AUTO 7 % (4-13); Mean Corpuscular HGB 30.9 pg (26.0-34.0); Mean Corpuscular Volume 97 fL (80-100); Mean Platelet Volume 11.4 fL (9.1-12.4); NEUTROPHILS ABSOLUTE AUTO 10.89 K/mm3 (1.96-9.15); NEUTROPHILS PERCENT AUTO 81 % (41-73); Platelet Count 261 K/mm3 (150-400); RDW Coefficient Variation 14.8 % (11.7-14.2); RDW Standard Deviation 52.4 fL (35.1-46.3); Red Blood Cell Count 2.65 M/mm3 (4.30-5.90); White Blood Cell Count 13.41 K/mm3 (4.00-11.30)
[2021-10-27 04:11] LABS: Albumin, Blood 1.5 g/dL (3.4-5.0); Anion Gap 10 mmol/L (6-16); Blood Urea Nitrogen 60 mg/dL (8-24); Bun/Creatinine Ratio 18.3 (12.0-20.0); CO2, Blood 29 mmol/L (21-32); Calcium, Blood 7.2 mg/dL (8.5-10.1); Chloride, Blood 99 mmol/L (98-108); Creatinine, Blood 3.28 mg/dL (0.60-1.20); Glomerular Filtration Rate 19 (60-); Glucose, Blood 129 mg/dL (70-99); Magnesium, Blood 1.7 mg/dL (1.6-2.4); Phosphorus, Blood 6.2 mg/dL (2.5-4.9); Potassium, Blood 3.4 mmol/L (3.5-5.5); Sodium, Blood 138 mmol/L (136-145)
--- NOTE | 2021-10-27 17:55 | NUR ---
SHIFT SUMMARY: PT INTUBATED AND SEDATED THROUGHOUT THIS SHIFT. PROPOFOL REMAINED AT 30 MCG/KG/HR. PT WAS ALERT AND ABLE TO FOLLOW COMMANDS. VSS. AT 1730 PROPOFOL WAS PLACED ON STAND BY FOR A SEDATION VACATION. PT PLACED ON PRESSURE SUPPORT 8/5 FIO2 30%. PT TOLERATING WELL AT THIS TIME. OG IS IN PLACE @ GOAL RATE OF 25. PT HAD 1900 OF YELLOW URINE THIS SHIFT. RECTAL TUBE HAD 100 ML OF BROWN LIQUID STOOL. HAS BEEN AT BEDSIDE THROUGHOUT THE DAY. PLAN FOR EXTUBATION TOMORROW. WILL CONTINUE TO MONITOR AND REPORT TO ONCOMING RN.
--- NOTE | 2021-10-27 22:15 | NUR ---
SHIFT ASSESSMENT ASSUMED CARE OF PT @ 1900. INITIALLY PT ALERT AND FOLLOWING COMMANDS. REMAINS ON VENTILATOR IN SPONTANEOUS MODE, SEDATION WAS OFF. PT SEEMED TO BE TOLERATING WELL FOR THE FIRST 1-2 HOURS OF THE SHIFT. THE NIGHT CARRIED ON PT BECAME MORE ANXIOUS, PULLING AT RESTRAINTS, POINTING AT ETT. THIS NURSE ASKED PT IF HE WAS OK, PT SHOOK HEAD NO. AFTER MULTIPLE QUESTIONS WERE ASKED, PROBLEM PINPOINTED TO PT BEING VERY ANXIOUS, WANTING ETT REMOVED, AND WANTING SEDATION. PT COUGHING, ATTEMPTING TO REMOVE ETT WITH TONGUE. THIS NURSE AT BEDSIDE, ATTEMPTED SED ADJUNCT WITH FENTANYL. ONLY CALMED PT FOR SHORT TIME. PT NOW BACK ON PROPOFOL @ 35MCG'S AND VENT- SETTINGS VC-20/400/30/5 c SATS >95%. PT REMAINS EDEMATOUS, SCROTAL EDEMA AND WOUNDS UNCHANGED SINCE PREVIOUS SHIFT. TF CONTINUES AT GOAL. CATH PATENT, DRAINING YELLOW URINE. RECTAL TUBE DRAINING BROWN LOOSE STOOL. LEFT BKA INCISION SITE C/D/I, NO DRAINAGE.
[2021-10-28 03:42] LABS: Hematocrit 24.8 % (37.0-53.0); Hemoglobin 7.9 g/dL (13.5-17.5)
[2021-10-28 04:00] LABS: Albumin, Blood 1.5 g/dL (3.4-5.0); Anion Gap 9 mmol/L (6-16); Blood Urea Nitrogen 50 mg/dL (8-24); Bun/Creatinine Ratio 17.4 (12.0-20.0); CO2, Blood 29 mmol/L (21-32); Calcium, Blood 7.1 mg/dL (8.5-10.1); Chloride, Blood 99 mmol/L (98-108); Creatinine, Blood 2.87 mg/dL (0.60-1.20); Glomerular Filtration Rate 22 (60-); Glucose, Blood 155 mg/dL (70-99); Magnesium, Blood 1.6 mg/dL (1.6-2.4); Potassium, Blood 3.1 mmol/L (3.5-5.5); Sodium, Blood 137 mmol/L (136-145)
--- NOTE | 2021-10-28 06:42 | NUR ---
SHIFT SUMMARY PT REMAINS INTUBATED AND SEDATED c PROPOFOL. VENT SETTINGS REMAIN @ VC-20/400/30/5 c O2 SATS >95%. PT OPENS EYES TO STIMULI, FOLLOWS SIMPLE COMMANDS, QUICKLY BACK TO SLEEP WITH DECREASED STIMULI. VSS T/O THE NIGHT. OGT c TF @ GOAL. CATH DRAINING LIGHT YELLOW URINE. RECTAL TUBE DRAINING LOOSE BROWN STOOL. MAGNESIUM AND POTASSIUM INFUSING THIS AM. NO OTHER ACUTE CHANGES DURING THE NIGHT. REPORT TO ONCOMING NURSE.
--- NOTE | 2021-10-28 09:08 | NUR ---
ASSUMED CARE BEDSIDE REPORT RECIEVED. PT IS INTUBATED AND SEDATED. SEDATION PLACED ON STANDBY UPON ENTERING ROOM. PT AWAKENS TO VERBAL STIMULI AND FOLLOWS COMMANDS WELL. VENT SETTINGS AC 20, TV 400, PEEP 5, FIO2 30%. PT SPOUSE AT BEDSIDE. VITAL SIGNS STABLE. DISCUSSED PLANS FOR DIALYSIS WITH TERESA MARTINEZ, AND DR BUCKNER. PLANS TO REPLACE TRIALYSIS CATH THIS AM, THEN DIALYZE PT BEFORE EXTUBATION TODAY. WILL CONTINUE TO MONITOR.
--- NOTE | 2021-10-28 13:13 | NUR ---
DIALYSIS DR MARCIAL SAID HE IS NOT PLANNING DIALYSIS FOR THIS PT TOMORROW. HE'S EDEMA HAS IMPROVED. HE IS PRODUCING URINE AND COLOR IS GOOD.
--- NOTE | 2021-10-28 15:18 | NUR ---
EXTUBATION PT OFF SEDATION AND DOING WELL ON PRESSURE SUPPORT OF 02/09. ORDERS TO EXTUBATED RECIEVED FROM DR BUCKNER. RT ARLEEN AT BEDSIDE. PT EXTUBATED AT 1455 AND PLACED ON 4L O2 NC. PT DOING WELL AT THIS TIME, VITAL SIGNS STABLE. PT SPOUSE AT BEDSIDE. WILL CONTINUE TO MONITOR.
--- NOTE | 2021-10-28 17:31 | NUR ---
SHIFT SUMMARY: PT INTUBATED AND SEDATED A MAJORITY OF THE SHIFT. AT 1500 PROPOFOL WAS PLACED ON STANDBY AND PT WAS EXTUBATED. NEW TRIALYSIS CATHETER PLACED IN LEFT IJ THIS MORNING. PT RECEVIED HEMODIALYSIS THIS MORNING. PICC LINE TO SHANICE REMAINS INTACT. PT RESPONDED WELL AND IS NOW ON 4L NC SATING ABOVE 95%. LUNG SOUNDS CLEAR THROUGHOUT. VSS. PT IS ABLE TO ANSWER QUESTIONS AND FOLLOW COMMANDS. PT HAD 800 ML OF URINE OUTPUT. CATHETER IS IN PLACE DRAINING TO GRAVITY. RECTAL TUBE IS INTACT AND HAD 400 ML OF BROWN LIQUID STOOL. HAS BEEN AT BEDSIDE THROUGHOUT TODAY. WILL CONTINUE TO MONITOR AND REPORT TO ONCOMING RN.
--- NOTE | 2021-10-28 21:40 | NUR ---
SHIFT ASSESSMENT ASSUMED CARE OF PT @ 1900. PT ALERT AND ORIENTED, FOLLOWING COMMANDS. VERY APPRECIATED OF OUR CARE. VOICE REMAINS HARSH BUT SLOWLY EASIER TO HEAR. ON 2LPM O2 VIA NC c O2 SATS >95%, PT DENIES SOB. BP STABLE. PT IN MILD PAIN IN LLE, STATES HE WILL LET US KNOW IF HE NEEDS MEDICINE. PT C/O MODERATE PAIN IN RECTUM, RECTAL TUBE REMOVED. PT IMMEDIATELY APPEARED MORE COMFORTABLE, CURRENTLY RESTING WELL WITH CALL LIGHT IN REACH. WILL MONITOR CLOSELY.
[2021-10-29 04:30] LABS: BASOPHILS PERCENT AUTO 1 % (0-2); EOSINOPHILS ABSOLUTE AUTO 0.36 K/mm3 (0.00-0.68); EOSINOPHILS PERCENT AUTO 3 % (0-6); Hematocrit 26.1 % (37.0-53.0); Hemoglobin 8.2 g/dL (13.5-17.5); IMMATURE GRAN ABSOLUTE AUTO 0.05 K/mm3 (0.00-0.10); IMMATURE GRAN PERCENT AUTO 0 % (0-1); LYMPHOCYTES ABSOLUTE AUTO 1.17 K/mm3 (0.84-5.20); LYMPHOCYTES PERCENT AUTO 8 % (21-46); MONOCYTES ABSOLUTE AUTO 1.01 K/mm3 (0.16-1.47); MONOCYTES PERCENT AUTO 7 % (4-13); Mean Corpuscular HGB 30.8 pg (26.0-34.0); Mean Corpuscular HGB Conc 31.4 g/dL (31.5-36.5); Mean Corpuscular Volume 98 fL (80-100); Mean Platelet Volume 10.6 fL (9.1-12.4); NEUTROPHILS ABSOLUTE AUTO 11.63 K/mm3 (1.96-9.15); NEUTROPHILS PERCENT AUTO 81 % (41-73); Platelet Count 362 K/mm3 (150-400); RDW Coefficient Variation 15.1 % (11.7-14.2); RDW Standard Deviation 53.5 fL (35.1-46.3); Red Blood Cell Count 2.66 M/mm3 (4.30-5.90); White Blood Cell Count 14.32 K/mm3 (4.00-11.30)
[2021-10-29 04:46] LABS: Albumin, Blood 1.6 g/dL (3.4-5.0); Anion Gap 8 mmol/L (6-16); Blood Urea Nitrogen 38 mg/dL (8-24); Bun/Creatinine Ratio 15.1 (12.0-20.0); CO2, Blood 31 mmol/L (21-32); Calcium, Blood 7.8 mg/dL (8.5-10.1); Chloride, Blood 99 mmol/L (98-108); Creatinine, Blood 2.51 mg/dL (0.60-1.20); Glomerular Filtration Rate 26 (60-); Glucose, Blood 104 mg/dL (70-99); Magnesium, Blood 1.8 mg/dL (1.6-2.4); Phosphorus, Blood 4.7 mg/dL (2.5-4.9); Potassium, Blood 3.5 mmol/L (3.5-5.5); Sodium, Blood 138 mmol/L (136-145)
--- NOTE | 2021-10-29 05:58 | NUR ---
SHIFT SUMMARY PT HAD A BRIEF MOMENT OF CONFUSION PRIOR TO MIDNIGHT, BUT CLEARED T/O THE NIGHT/ MORNING. CURRENTLY ALERT TO PERSON, PLACE, AND EVENT. REMAINS VERY THANKFUL FOR HIS RECOVERY SO FAR. PTS STRENGTH IMPROVING, ABLE TO ASSIST WITH TURNS NOW. OVERALL EDEMA IMPROVING GREATLY. SLEPT FOR A FEW HOURS EARLY IN THE NIGHT, C/O MODERATE GENERALIZED PAIN AROUND 0400, MEDICATED c PRN FENTANYL c GOOD RELIEF. PT NOW RESTING COMFORTABLY. ATTEMPTED TO TITRATE OXYGEN OFF BUT PT DESATS TO HIGH 80'S ON RA EVEN THOUGH HE DENIES SOB. CURRENTLY ON 2LPM VIA NC c SATS >90% WHILE SLEEPING. VSS. WILL CONTINUE TO MONITOR CLOSELY.
--- NOTE | 2021-10-29 10:20 | NUR ---
TRANSFER: PT WAS TRANSFERRED TO SURG 231 AT 1015 VIA BED. ALL MEDICATIONS AND BELONGING TAKEN WITH PT. PT SPOUSE FOLLOWED TO NEW ROOM.
--- NOTE | 2021-10-29 10:24 | NUR ---
ARRIVAL PT ARRIVED TO UNIT FROM ICU. PT IS AA0X3, SOME CONFUSION BUT ANSWERS APPROPRIATLY. HE REPORTS MINIMAL PAIN TO RIBS WITH COUGHING, EDUCATED ON SPLINTING AND PT REPORTS EFFECTIVE. PATENT AND DRAINING. WOUNDS TO R FOOT PRESENT AND DRY. IJ AND PICC LINE DRESSINGS CDI. 2L NASAL CANULA SATS REMAIN GREATER THAN 92%
--- NOTE | 2021-10-29 10:57 | NUR ---
PROVIDED PATIENT JELLO AND ICE CHIPS. PT HOB ELEVATED AND OBSERVED WHILE EATING. PT HAD NO COUGHING OR CHOKING WHILE SWALLOWING. SPOKE WITH DR. NULL. ADVANCED TO A MECHANICAL SOFT DIET AND WILL CONTINUE TO OBSERVE FOR ANY S/S OF ASPIRATION WHILE EATING.
[2021-10-29 15:37] LABS: Albumin, Blood 1.6 g/dL (3.4-5.0); Anion Gap 9 mmol/L (6-16); Blood Urea Nitrogen 39 mg/dL (8-24); Bun/Creatinine Ratio 14.4 (12.0-20.0); CO2, Blood 31 mmol/L (21-32); Calcium, Blood 7.7 mg/dL (8.5-10.1); Chloride, Blood 97 mmol/L (98-108); Creatinine, Blood 2.71 mg/dL (0.60-1.20); Glomerular Filtration Rate 24 (60-); Glucose, Blood 146 mg/dL (70-99); Potassium, Blood 3.5 mmol/L (3.5-5.5); Sodium, Blood 137 mmol/L (136-145)
--- NOTE | 2021-10-29 17:14 | NUR ---
SHIFT SUMMARY SINCE ARRIVAL TO FLOOR PT HAS BEEN ABLE TO EAT HIS MECHANICAL SOFT DIET, WITH NO CHOKING WHILE SWALLOWING. TRANSITIONED TO PO PAIN MEDICATIONS, PAIN WELL MANAGED PER EMAR AND WITH REPOSITIONING. PT HAS BEEN ACTIVE WITH PHYSICAL THERAPY AND DOING ROM INDEPENDENTLY IN HIS ROOM OR WITH HIS . TITRATING OXYGEN TOLERATED DOWN TO 2L NASAL CANULA AT THIS TIME. REMAINS PATENT AND DRAINING. STUMP SOCK TO LLE CDI.
--- NOTE | 2021-10-30 01:17 | NUR ---
DOCK OR PIER LABORER REPORTS PT IS BOUNCING BACK AND FORTH BETWEEN A-FIB AND SR, A-FIB NOT SUSTAINED. PT DENIES ANY CHEST PAIN OR SOB. WCTM.
--- NOTE | 2021-10-30 02:51 | NUR ---
QUALITY ASSURANCE CALIBRATOR REPORTS SR WITH FIRST DEGREE AV BLOCK AND SINUS ARRHYTHMIA.
[2021-10-30 05:58] LABS: Hematocrit 26.4 % (37.0-53.0); Hemoglobin 8.5 g/dL (13.5-17.5)
--- NOTE | 2021-10-30 06:04 | NUR ---
SHIFT SUMMARY: WALTER IS A&OX4 BUT REPORTS FORGETFULNESS WHICH HE FINDS UNSETTELING. VSS, NO ACUTE EVENTS OVERNIGHT. HE DOES HAVE A COUGH WHICH INCREASES AFTER DRINKING LIQUIDS, NO COUGH NOTED WHEN EATING JELLO. PICC LINE PATENT, ABLE TO DRAW LABS WITH NO DIFFICULTY. OG SANTAMARIA, PT ABLE TO TURN AND REPOSITION HIMSELF IN BED, USES THE CALL LIGHT APPROPRIATELY. HE IS LYING IN BED WITH THE CALL LIGHT IN REACH. WCTM UNTIL REPORT IS GIVEN TO DAY SHIFT RN.
[2021-10-30 06:21] LABS: Albumin, Blood 1.7 g/dL (3.4-5.0); Anion Gap 9 mmol/L (6-16); Blood Urea Nitrogen 45 mg/dL (8-24); Bun/Creatinine Ratio 15.5 (12.0-20.0); CO2, Blood 30 mmol/L (21-32); Chloride, Blood 97 mmol/L (98-108); Glomerular Filtration Rate 22 (60-); Glucose, Blood 168 mg/dL (70-99); Magnesium, Blood 1.9 mg/dL (1.6-2.4); Phosphorus, Blood 5.6 mg/dL (2.5-4.9); Potassium, Blood 3.6 mmol/L (3.5-5.5); Sodium, Blood 136 mmol/L (136-145)
[2021-10-30 13:56] LABS: BASOPHILS PERCENT AUTO 1 % (0-2); EOSINOPHILS ABSOLUTE AUTO 0.19 K/mm3 (0.00-0.68); EOSINOPHILS PERCENT AUTO 1 % (0-6); Hematocrit 26.1 % (37.0-53.0); Hemoglobin 8.2 g/dL (13.5-17.5); IMMATURE GRAN ABSOLUTE AUTO 0.06 K/mm3 (0.00-0.10); IMMATURE GRAN PERCENT AUTO 1 % (0-1); LYMPHOCYTES ABSOLUTE AUTO 0.78 K/mm3 (0.84-5.20); LYMPHOCYTES PERCENT AUTO 6 % (21-46); MONOCYTES ABSOLUTE AUTO 0.72 K/mm3 (0.16-1.47); MONOCYTES PERCENT AUTO 5 % (4-13); Mean Corpuscular HGB 31.7 pg (26.0-34.0); Mean Corpuscular HGB Conc 31.4 g/dL (31.5-36.5); Mean Corpuscular Volume 101 fL (80-100); Mean Platelet Volume 10.6 fL (9.1-12.4); NEUTROPHILS ABSOLUTE AUTO 11.41 K/mm3 (1.96-9.15); NEUTROPHILS PERCENT AUTO 86 % (41-73); Platelet Count 410 K/mm3 (150-400); RDW Standard Deviation 53.7 fL (35.1-46.3); Red Blood Cell Count 2.59 M/mm3 (4.30-5.90); White Blood Cell Count 13.26 K/mm3 (4.00-11.30)
--- NOTE | 2021-10-30 18:20 | NUR ---
SHIFT SUMMARY PT A&OX4, VSS/2LNC. PICC LUE FLUSHES/DRAWS WELL. TCDB/I.S. EDU/ENC. PATENT & DRAINING YELLOW URINE, STAT LOCK ON, OFF FLOOR. DEEPIKA PO; SPEECH EVAL COMPLETE TODAY; DIET SOFT BITE SIZE, MEDS WHOLE, DYSPHAGIA PRECAUTIONS. S/P L BKA/STUMP SOCK CDI, ELEVATED ON PILLOW. ABX INFUSING PER EMAR/SL. PAIN MANAGED WELL WITH NORCO AND REPOSITIONING; PT IS DECONDITIONED AND HAS A HARD TIME REPOSITIONING SELF. WILL REPORT TO ONCOMING NOC RN.
--- NOTE | 2021-10-31 04:19 | NUR ---
SHIFT SUMMARY NO ACUTE CHANGES. PT CONTINUES TO BE IRRITABLE WITH STAFF AND REFUSES MOST CARE OFFERED TO HIM. INTACT AND DRAINING. HAS DECLINED PAIN MEDICATIONS AND KPAD FOR HIS BACK. IV ABX PER ORDERS. STUMP SOCK REMAINS CDI AND ENCOURAGING PT TO ELEVATE LLE ON PILLOW. CONTINUING TO REINFORCE AND EDUCATE PT ON TREATMENT PLANS AND GOALS. PT USES CALL LIGHT APPROPRIATELY.
[2021-10-31 05:27] LABS: Hematocrit 28.5 % (37.0-53.0)
[2021-10-31 05:39] LABS: Albumin, Blood 1.9 g/dL (3.4-5.0); Anion Gap 10 mmol/L (6-16); Blood Urea Nitrogen 48 mg/dL (8-24); Bun/Creatinine Ratio 14.5 (12.0-20.0); CO2, Blood 31 mmol/L (21-32); Calcium, Blood 8.2 mg/dL (8.5-10.1); Chloride, Blood 95 mmol/L (98-108); Creatinine, Blood 3.31 mg/dL (0.60-1.20); Glomerular Filtration Rate 19 (60-); Glucose, Blood 175 mg/dL (70-99); Magnesium, Blood 1.9 mg/dL (1.6-2.4); Phosphorus, Blood 5.7 mg/dL (2.5-4.9); Potassium, Blood 3.6 mmol/L (3.5-5.5); Sodium, Blood 136 mmol/L (136-145)
--- NOTE | 2021-10-31 05:45 | NUR ---
PT KEEPS PICKING AT DIALYSIS PORT/CENTRAL LINE TO LEFT NECK. PT REMOVED DRESSING. CLEANSED WITH CHLORHEXADINE SWAB AND REDRESSED WITH TEGADERM CHG DRESSING. PT EXTREMELY IRRITABLE AND STATES HE IS GOING TO PULL IT OUT. EDUCATED PT NOT TO TOUCH IT AND/OR PULL IT OUT IT IS UNSAFE AND LIFE THREATENING IF HE DID. PT CONTINUES TO BE IRRITABLE. PT ALSO CONTINUOUSLY TAKING OFF HIS OXYGEN. PT SATS DOWN INTO THE 70S. NASAL CANNULA PLACED BACK ONTO PT AND EDUCATED PT ON THE IMPORTANCE OF OXYGEN AND DEEP BREATHING. PT YELLING AT STAFF AND USING FOUL LANGUAGE. WILL CONT TO REINFORCE EDUCATION AND MONITOR.
--- NOTE | 2021-10-31 14:35 | NUR ---
DIALYSIS UNABLE CLEAR LINES WELL, TRIED TO CONNECT TO TX. UNABLE TO GET IT TO FLOW. CALLED DR MARCIAL. HE SAID TO PACK WITH CATHFLO AND HAVE FLOOR RN TO ORDER PERMA CATH PLACEMENT.
--- NOTE | 2021-10-31 16:32 | NUR ---
Spiritual Care Visit Pt. is awake and in bed. Pt. has no other visitors. Pt. welcomes my visit. Pt. is unsettled by the life complications following his recent time in the ICU and surgery. Listen empathetically. Share some pastoral perspective of his time in ICU. Pt. displays evidence of understanding and humility. Provided a calming presence and motivated Pt. to fight for his own recovery. Pt. requested that I pray. Prayed with Pt. Pt. requested that I call his fiance' and tell her he is thankful, he loves her, and he misses her. Pt. verbalized gratitude for the spiritual care visit. Upon returning to my office. Pt'sammy jewell' was contacted by phone, and a voicemail with his message was recorded.
--- NOTE | 2021-10-31 17:27 | NUR ---
MALI AWARE OF PROCEDURE TOMORROW
--- NOTE | 2021-10-31 18:03 | NUR ---
SHIFT SUMMARY PT A&O3, CBGS ACHS, 6L NC OXYGEN, TCDB EDU/ENC/PT DEMONSTRATED. DECLINED ALL MEALS TODAY, PICC SHANICE INFUSING ABX. UNABLE TO GET DIALYSIS TODAY R/T TRIALYSIS PORT NOT WORKING. PLAN FOR I.R. TOMORROW AFTERNOON, NPO MIDNIGHT, MALI AWARE. PATENT & DRAINING YELLOW URINE, STAT LOCK ON, OFF FLOOR. BMS DIARRHEA TODAY-MULTIPLE/BEDPAN, MEPILEX ON COCCYX. S/P L BKA STUMP SOCK CDI, ELEVATED. PT ASSISTING WITH REPOSITIONING. DENIED PAIN MEDS TODAY. WILL REPORT TO ONCOMING NOC RN.
--- NOTE | 2021-11-01 06:02 | NUR ---
FREELANCE DATA ENTRY SUMMARY PT AAOX4 AND PLEASANT/COOPERATIVE. CONTINUING IV ABX AND LASIX PER EMAR. RT INCREASED O2 TO 6L AT START OF SHIFT. PT ENCOURAGED TO DEEP COUGH AND USE IS OFTEN WHILE AWAKE. PT HAS BEEN COUGHING UP SOME THICK SPUTUM. O2 SATS 90-92% ON 6L. R STUMP SOCK C/D/I. PT HAS DENIED PAIN THUS FAR TONIGHT. HR 90-100 ON TELE. BP IMPROVING SLIGHTLY 150'S SYSTOLIC. PT HAS BEEN NPO SINCE MIDNIGHT FOR PERMACATH PLACEMENT LATER TODAY. WILL CONTINUE TO MONITOR.
[2021-11-01 06:41] LABS: Hematocrit 29.7 % (37.0-53.0); Hemoglobin 9.4 g/dL (13.5-17.5)
[2021-11-01 06:58] LABS: Anion Gap 13 mmol/L (6-16); Blood Urea Nitrogen 59 mg/dL (8-24); Bun/Creatinine Ratio 15.6 (12.0-20.0); CO2, Blood 28 mmol/L (21-32); Calcium, Blood 8.3 mg/dL (8.5-10.1); Chloride, Blood 95 mmol/L (98-108); Creatinine, Blood 3.77 mg/dL (0.60-1.20); Glomerular Filtration Rate 16 (60-); Glucose, Blood 137 mg/dL (70-99); Phosphorus, Blood 6.7 mg/dL (2.5-4.9); Potassium, Blood 3.7 mmol/L (3.5-5.5); Sodium, Blood 136 mmol/L (136-145)
--- NOTE | 2021-11-01 10:29 | NUR ---
Spiritual Care visit. Pt. is resting and mostly non-reponsive. Mirian' is present and welcomes me to the room. Followed up on conversations and phone calls from the previous day. Mirian' is displaying evidence of gratitude and hope. Agree to return when the Pt. is more responsive. Mirian' verbalized gratitude for the spiritual care both yesterday with pt. and today.
--- NOTE | 2021-11-01 19:24 | NUR ---
SHIFT SUMMARY S/P L AMENA ON 10/18, PT KEPT NPO TODAY FOR PERMACATH PLACEMENT WHICH GOT BUMPED TO TOMORROW D/T [facility]CIES IN [facility]. DISCUSSED PLAN FOR 0800 TOMORROW WITH THE PATIENT AND HIS , DIALYSIS UPDATED ON PLAN WHO REPORTS THEY WILL DO DIALYSIS RIGHT AFTER HER RETURNS FROM THE PLACEMENT. DID WELL WITH PHYSICAL THERAPY BUT REFUSED OT. NO ACUTE EVENTS THIS SHIFT. CALL LIGHT IN REACH, REPORT GIVEN TO ANDRIA MARTINEZ.
--- NOTE | 2021-11-02 05:14 | NUR ---
PATIENT A&O X4 AND COOPERATIVE. PATIENT WAS AT 88% SPO2 ON 6L O2 AT THE BEGINNING OF SHIFT. HE WAS INCREASED TO 11L O2. PATIENT WAS AT 100% SPO2 DURING MORNING VITALS. O2 WAS THEN DECREASED TO 9L. PATIENT ENCOURAGED TO COUGH AND DEEP BREATHE. HE WAS MADE NPO AT 0000. LEFT BKA INCISION IS WNL. NO OTHER ACUTE CHANGES THIS SHIFT.
[2021-11-02 06:12] LABS: Hematocrit 28.4 % (37.0-53.0); Hemoglobin 8.8 g/dL (13.5-17.5)
[2021-11-02 06:23] LABS: Anion Gap 14 mmol/L (6-16); Blood Urea Nitrogen 66 mg/dL (8-24); Bun/Creatinine Ratio 16.6 (12.0-20.0); CO2, Blood 27 mmol/L (21-32); Chloride, Blood 95 mmol/L (98-108); Creatinine, Blood 3.97 mg/dL (0.60-1.20); Glomerular Filtration Rate 15 (60-); Glucose, Blood 160 mg/dL (70-99); Magnesium, Blood 2.1 mg/dL (1.6-2.4); Potassium, Blood 3.8 mmol/L (3.5-5.5); Sodium, Blood 136 mmol/L (136-145)
--- NOTE | 2021-11-02 14:54 | NUR ---
MORNING MEDICATIONS PATIENT IN DIALYSIS DURING TIME OF MORNING MEDICATION ADMINISTRATION, CALLED PRESSER ALL AROUND TO ASK IF I SHOULD GIVE THEM EARLY OR WAIT TILL AFTER HE IS DONE AND THEY DIRECTED ME TO WAIT. UPON RETURN PATIENT WAS LETHARGIC, ABLE TO OPEN EYES AND ANSWER SOME QUESTIONS BUT IS STILL HAVING DIFFICULTY TALKING. IV MEDICATIONS GIVEN BUT ORAL MEDS HELD TO LET PATIENT REST TO REDUCE RISK OF ASPIRATION. TO DISCUSS NEXT STEPS GOING FORWARD WITH PATIENT AND HIS . WILL VARUN
--- NOTE | 2021-11-02 18:24 | NUR ---
SHIFT SUMMARY PT TRANSFERRED TO PAPER AND PULP MILL WORKER AT START OF SHIFT FOR PERMACATH PLACEMENT. UPON COMPLETION, PT WAS TAKEN TO DIALYSIS FOR TREATMENT. PT RETURNED TO ROOM AT APPROX 1230. PT HAS DECLINED FOOD T/O THIS SHIFT. PT'S PAIN CONTROLLED W/ NORCO ORDERED AND ADMINISTERED TWICE T/O THIS SHIFT. PT SPENT MOST OF THE SHIFT RESTING. PT DISCUSSED TRANSITIONING TO HOSPICE CARE W/ DR NULL. PT IS RESTING IN ROOM W/ PRESENT AT THIS TIME.
--- NOTE | 2021-11-02 20:25 | NUR ---
WENT INTO ROOM TO CHECK PT'S CBG FOR 2100 INSULIN DOSING. PT ASLEEP BUT WOKE UP AND DENIED CBG CHECK. INFORMED PT THAT I WOULD BE IN SOON WITH THE REST OF HIS SCHEDULED MEDICATIONS AND PT STATED HE DID NOT WANT THEM TONIGHT. PT ALSO DENIED NEED FOR PAIN MEDS AT THIS TIME. SPOT CHECKED PT'S O2 WHICH WAS 99% ON CURRENT 10L HFNC. PT STATED HE JUST WANTED TO GET SOME SLEEP. TOLD PT THAT WE WOULD BE IN EVERY FEW HOURS THROUGH THE NIGHT TO REPOSITION HIM FOR COMFORT AND HE AGREED. WILL CONTINUE TO MONITOR.
--- NOTE | 2021-11-03 04:42 | NUR ---
PITCH FILLER SUMMARY PATIENT A&O X4. VSS. PATIENT REFUSED PO MEDS DUE AT 2100 BUT CONSENTED TO IV ANTIBIOTICS. PATIENT REPORTED 6/10 PAIN BUT REFUSED PAIN MEDICATION. PERMACATH INCISION SITE IS COVERED WITH A TRANSPARENT DRESSING. IT HAS LIGHT SEROSANGUINOUS DISCHARGE, BUT IS FREE OF S/S OF INFECTION. LEFT BKA INCISION SITE IS OPEN TO AIR, CDI, AND FREE OF S/S OF INFECTION. PATIENT HAS ALLOWED REPOSITIONING AND AM LAB DRAW. HE REFUSED AM VITALS. NO OTHER ACUTE CHANGES THIS SHIFT.
[2021-11-03 04:55] LABS: Hematocrit 29.4 % (37.0-53.0); Hemoglobin 9.2 g/dL (13.5-17.5)
[2021-11-03 05:16] LABS: Anion Gap 15 mmol/L (6-16); Blood Urea Nitrogen 46 mg/dL (8-24); Bun/Creatinine Ratio 14.4 (12.0-20.0); CO2, Blood 26 mmol/L (21-32); Calcium, Blood 7.9 mg/dL (8.5-10.1); Chloride, Blood 97 mmol/L (98-108); Glomerular Filtration Rate 20 (60-); Glucose, Blood 150 mg/dL (70-99); Phosphorus, Blood 6.7 mg/dL (2.5-4.9); Potassium, Blood 3.9 mmol/L (3.5-5.5); Sodium, Blood 138 mmol/L (136-145)
--- NOTE | 2021-11-03 11:36 | NUR ---
Spiritual Care Visit. Pt. is resting. Mirian' is present. This accounting support specialist had been briefed by the nursing staff of lack of clarity on regarding the Pts. progress. Re-establish rapport with the Pts. mirian' who verbalizes confusion over conflicting messages from different doctors. I asked the mirian' if she would like me to see if there was someone who could help her navigate the real options. This accounting support specialist met with Palliative Care and updated them on my conversation. Palliative care agreed to meet with Rosangela this afternoon (Saturday). Additional note: I believe some of the urgent sense of concern from the mirian' is coming from the pressure she is experiencing because she has exhausted her PTO from her employer. Will remain available to Pt., Mirian, and staff.
--- NOTE | 2021-11-03 12:34 | NUR ---
Spoke with Scrap Crane Operatoradi Reyes, Primary RN Debbie, and Dr Christensen. Discussed case and concerns. Pt has been expressing no longer wanting dialysis. Pt's SO expressing some frustration as she is receiving conflicting information. Pt resting in bed upon arrival. Pt's SO Jennifer at bedside. Offered therapeutic listening and validated concerns. Engaged in therapeutic discussion regarding considering goals and values including quantity of life vs quality of life. Gentle education on disease process including trajectory. Continued therapeutic listening and answered questions. Pt expresses wishes to continue as Dr Chandra recommends and is agreeable for dialysis for now. Pt and family express appreciation and report no other concerns at this time. Spoke with Primary JUAN Lewis and relayed Pt's wishes. Palliative Care will remain available.
--- NOTE | 2021-11-03 16:03 | NUR ---
SHIFT SUMMARY: CELLULITIS NO SIGNIFICANT CHANGES. PATIENT IS A&OX3. VS ARE WNL AND IS ON 6L OXYGEN ON NC. LEFT BKA STUMP HAS KEON THAT ARE C/D/I AND HAS A STUMP SOCK OVER. PERMACATH THAT WAS PLACED YESTERDAY IS INTACT. HE HAS GAUZE ON HIS NECK FROM AN OLD CENTRAL LINE THAT IS INTACT WELL. PICC IS RUNNING ABX AND FLUIDS THROUGHOUT SHIFT. PATIENT HAD A BM TODAY AND IS INCONTINENT WHICH HE THEN HAS HIS ATTENDS CHANGED PRN. PAIN IS MANAGED WITH PO NORCO. PATIENT IS MORE SLEEPY DURING THE AFTERNOON. AT BEDSIDE. CALL LIGHT WITHIN REACH. THE PLAN IS TO HAVE DIALYSIS TOMORROW WELL GET HIM UP IN THE CHAIR WITH THE [facility] FOR 4-5 HOURS A DAY. PHYSICAL THERAPY SAID THEY WILL RECOMMEND HOME WITH HOME HEALTH AND OUTPATIENT DIALYSIS ONCE IS EDUCATED ON HOW TO USE [facility] AND PATIENT HAS BEEN UP FOR 4-5 HOURS THROUGHOUT SHIFT.
--- NOTE | 2021-11-03 22:45 | NUR ---
PT C/O INCREASED SOB AND TIGHTNESS IN HIS CHEST.STATING FEELS LIKE A HEART ATTACK BECAUSE OF TIGHTNESS.PT ON HIGH FLOW N/C INITIALLY SAT OF 90% AT 7 L. NOW SAT 86% AND DROPPING I PUSHED IT UP TO 10L.NO CHANGES TO TELE NOTED.EKG BEING DONE.I CALLED RT AND ADVISED OF SITUATION.MINIMAL AIR MOVEMENT NOTED TO L LUNG.RT TO BEDSIDE ? POSSIBLE NEED FOR CPAP/BIPAP.I CALLED DR PICKARD AND REVIEWED CODE HX WITH VENTILATORY SUPPORT, DIALYSIS PT AND DATES OF ORDERED DIALYSIS,I/O RECENT MEDS AND HELD/REFUSED MEDS NOTED.ORDERS RECEIVED. DID NOT WANT TO DO ABG.
--- NOTE | 2021-11-04 00:59 | NUR ---
PT HAS BEEN ON BIPAP WITH REPORT OF FEELING BETTER AND HAS ACTUALLY SLEPT.PT WOKE FOR MEDS AND REQUESTED REPOSITIONING TO R SIDE.
--- NOTE | 2021-11-04 01:30 | NUR ---
COMPENSATION PROGRAMS MANAGER AND NURSE REPOSITIONING PT TO R SIDE.WITHIN LESS THAN 3 MIN, PT C/O INCREASING SOB ANXIOUS.WANTING BIPAP REMOVED.SATS DIPPING TO MID 80'S.I CALLED RT TO ROOM AND CHANGING TO HIGH FLOW AGAIN.WITH CHANGING OVER, PT SATS HIT 76% R/A WHICH RESOLVED WITH HIGH FLOW.AFTER DISCUSSING WITH RESP CARE, REPOSITIONED PT OFF R SIDE AND ENC DEEP BREATHING THROUGH NOSE AND OUT MOUTH THEN PT WAS ABLE TO ACHIEVE SATS 92% ALTHOUGH PT STILL FEELING SOME INCREASED WOB.PT NOTEABLY ABD BREATHING. PT HAS NOT VOID SINCE GIVEN BUMEX IV,BUT WAS FEELING URGE.PT REPORTED IS VOIDING RENAL FAILURE.PT ATTEMPT TO VOID WITH NO RETURN.COMPENSATION PROGRAMS MANAGER WILL DO A BLADDER SCAN.
--- NOTE | 2021-11-04 02:16 | NUR ---
PT CONTINUES WITH NO NOTED CHANGE ON TELE NOTED.PT REPORTS BREATHING FEELS "BETTER" SATS 94% ON 11 L HI FLOW N/C PT FINALLY VOID 125 ML.
--- NOTE | 2021-11-04 02:33 | NUR ---
CALL TO DR ARNODL AND UPDATED REGARDING PT STATUS.NOTIFIED THAT PT IS CURRENTLY ON HI FLOW N/C @ 11 L.ADVISED OF NEED TO REPOSITION OFF R LUNG AND OF MY CONCERNS REGARDING L LUNG.CXR WAS DONE,BUT RESULTS NOT AVAILABLE AT THIS TIME.
[2021-11-04 05:31] LABS: Hemoglobin 8.5 g/dL (13.5-17.5)
[2021-11-04 05:48] LABS: Albumin, Blood 1.9 g/dL (3.4-5.0); Anion Gap 15 mmol/L (6-16); Blood Urea Nitrogen 49 mg/dL (8-24); Bun/Creatinine Ratio 13.3 (12.0-20.0); CO2, Blood 25 mmol/L (21-32); Calcium, Blood 7.5 mg/dL (8.5-10.1); Chloride, Blood 99 mmol/L (98-108); Creatinine, Blood 3.69 mg/dL (0.60-1.20); Glomerular Filtration Rate 17 (60-); Glucose, Blood 159 mg/dL (70-99); Magnesium, Blood 1.8 mg/dL (1.6-2.4); Phosphorus, Blood 7.3 mg/dL (2.5-4.9); Potassium, Blood 3.5 mmol/L (3.5-5.5); Sodium, Blood 139 mmol/L (136-145)
--- NOTE | 2021-11-04 08:40 | NUR ---
SUMMARY NO FURTHER ACUTE CHANGES.
--- NOTE | 2021-11-04 14:20 | NUR ---
TELEPHONE CALL TO DR RIOS RE CHEST XRAY RESULTS, DR RIOS SAID HE WILL LOOK AT THE RESULTS. NO NEW ORDERS RECEIVED.
--- NOTE | 2021-11-04 14:34 | NUR ---
TELEPHONE CALL FROM DR RIOS - LABS ORDERED, POSSIBLE THORACENTESIS ON LEFT.
[2021-11-04 15:10] LABS: Prothrombin Time Results 77.7 Sec (9.7-11.5)
[2021-11-04 15:20] LABS: International Normalized Ratio 8.51
[2021-11-04 16:15] LABS: Prothrombin Time Results 84.1 Sec (9.7-11.5)
[2021-11-04 16:17] LABS: International Normalized Ratio 9.27
--- NOTE | 2021-11-04 16:32 | NUR ---
TELEPHONE CALL TO SHEFALI/KAMILAH AND RELAYED MESSAGE TO CANCEL THORACENTESIS TODAY PER HOSPITALIST.
--- NOTE | 2021-11-04 16:38 | NUR ---
SHIFT SUMMARY PT A&OX3, DROWSY TODAY POST DIALYSIS, VERY LOW PO INTAKE, REPOSITIONED X2, PAIN MANAGED WITH NORCO 10 MG. S/P L BKA STUMP SOCK CDI, ELEVATED ON PILLOW. -CL INR 8.51 AT 1530 DRAWN FROM PICC-TC WITH HOSPITALIST, NEW ORDER: REDRAW. -CL INR FROM REDRAW 9.27 AT 1618-TC WITH HOSPITALIST, NEW ORDERS: CANCEL THORACENTESIS, DC HEPARIN AND GIVE 10 MG VIT K IV NOW. -LEFT MESSAGE WITH KAMILAH IN IMAGING AND THEN CONFIRMED WITH CRISTINO THAT THORACENTESIS CANCELLED FOR TODAY, THEY WILL LET DR POPE KNOW. BEDSIDE. WILL REPORT TO ONCOMING ANDRIA RN.
--- NOTE | 2021-11-04 17:36 | NUR ---
TELEPHONE CALL TO HOSPITALIST R/T PT BP HIGH SINCE RETURN FROM DIALYSIS. DR STATED HE WILL PUT IN ORDER.
--- NOTE | 2021-11-05 03:23 | NUR ---
PT SLIGHTLY IRRITABLE TONIGHT,REFUSING CARE.PT DESATS TO HIGH 70"S- LOW 80"S WHEN HE REMOVES 02 AND SLOW TO RECOVER SATS ABOVE 88 WHEN REPLACED.WITH MINIMAL MOVEMENT IN BED SATS DROP TO 85-86% WITH HI FLOW 02 AT 10-11L.PT VERB JUST WANTS TO BE LEFT ALONE AND SLEEP. PT VERB UNDERSTANDING RISKS OF NON-COMPLIANCE WITH CARE.VERBALIZES REALITY OF SITUATION IS DIFFICULT FOR HIM AT THIS TIME.ENC AND SUPPORT GIVEN.PT SLEEPING. WAS MED X1 FOR PAIN.
[2021-11-05 05:28] LABS: Hematocrit 30.2 % (37.0-53.0); Hemoglobin 9.3 g/dL (13.5-17.5)
[2021-11-05 05:47] LABS: Anion Gap 12 mmol/L (6-16); Blood Urea Nitrogen 39 mg/dL (8-24); Bun/Creatinine Ratio 12.4 (12.0-20.0); CO2, Blood 29 mmol/L (21-32); Calcium, Blood 7.9 mg/dL (8.5-10.1); Chloride, Blood 101 mmol/L (98-108); Creatinine, Blood 3.15 mg/dL (0.60-1.20); Glomerular Filtration Rate 20 (60-); Glucose, Blood 139 mg/dL (70-99); Phosphorus, Blood 6.4 mg/dL (2.5-4.9); Potassium, Blood 3.7 mmol/L (3.5-5.5); Sodium, Blood 142 mmol/L (136-145)
[2021-11-05 05:54] LABS: International Normalized Ratio 1.44; Prothrombin Time Results 14.8 Sec (9.7-11.5)
--- NOTE | 2021-11-05 14:13 | NUR ---
PT TO RADIOLOGY FOR THORACENTESIS PROCEDURE AT 1400.
[2021-11-05 15:05] LABS: Automated BF RBC Count 0.194 M/mm3 (0-0); Automated BF WBC Count 0.427 K/mm3 (0-999); Body Fluid WBC Count 427 /mm3 (0-999); RBC Count, Body Fluid 194000 /mm3 (0-0)
--- NOTE | 2021-11-05 15:15 | NUR ---
RAPID RESPONSE CALLED
--- NOTE | 2021-11-05 15:16 | NUR ---
TELEPHONE CALL TO DR RIOS RE RAPID RESPONSE CALLED FOR HYPOXIA
--- NOTE | 2021-11-05 15:25 | NUR ---
TELEPHONE CALL TO DR RIOS, INFORMED HIM PATIENT PASSED AT 1525.
[2021-11-05 15:40] LABS: Appearance, Body Fluid Hazy (Clear); Color, Body Fluid Red (None-Yellow); Total Cell Count, Body Fluid 100
--- NOTE | 2021-11-05 15:53 | NUR ---
TELEPHONE CALL TO DR MARCIAL TO INFORM OF PATIENT PASSING
--- NOTE | 2021-11-05 18:46 | NUR ---
rosponded to rapid response pt no pulse taking last few breaths. Advised his SO and got her to room. Lords prayer given and supportive care to family.
== END 2021-11-05 15:20 | DRG 853 ==
LOC: ER 17:37 → MEDS 21:40 → SURS 21:40 → ICUW 21:40 → EDBEDREQ 22:53 → MEDS 23:18 → ICUW 10-18 10:05 → SURS 10-29 10:22
PROVIDERS: Family Medicine; Internal Medicine; Internal Medicine Critical Care Medicine; Internal Medicine Nephrology; Physician Assistant; ADMIT Internal Medicine
PROC: 3E03329 Introduction of Other Anti-infective into Peripheral Vein, Percutaneous Approach (ICD-10-PCS; principal; 2021-10-17)
PROC: 3E033XZ Introduction of Vasopressor into Peripheral Vein, Percutaneous Approach (ICD-10-PCS; 2021-10-18)
PROC: 02HV33Z Insertion of Infusion Device into Superior Vena Cava, Percutaneous Approach (ICD-10-PCS; 2021-10-18)
PROC: 0Y6J0Z3 Detachment at Left Lower Leg, Low, Open Approach (ICD-10-PCS; 2021-10-18)
PROC: 02H633Z Insertion of Infusion Device into Right Atrium, Percutaneous Approach (ICD-10-PCS; 2021-10-19)
PROC: 0BH18EZ Insertion of Endotracheal Airway into Trachea, Via Natural or Artificial Opening Endoscopic (ICD-10-PCS; 2021-10-19)
PROC: 5A1955Z Respiratory Ventilation, Greater than 96 Consecutive Hours (ICD-10-PCS; 2021-10-19)
PROC: 02HV33Z Insertion of Infusion Device into Superior Vena Cava, Percutaneous Approach (ICD-10-PCS; 2021-10-28)
PROC: 5A0955A Assistance with Respiratory Ventilation, Greater than 96 Consecutive Hours, High Flow/Velocity Cannula (ICD-10-PCS; 2021-10-29)
PROC: 0JH63XZ Insertion of Tunneled Vascular Access Device into Chest Subcutaneous Tissue and Fascia, Percutaneous Approach (ICD-10-PCS; 2021-11-02)
PROC: 02HV33Z Insertion of Infusion Device into Superior Vena Cava, Percutaneous Approach (ICD-10-PCS; 2021-11-02)
PROC: B548ZZA Ultrasonography of Superior Vena Cava, Guidance (ICD-10-PCS; 2021-11-02)
PROC: 5A1D70Z Performance of Urinary Filtration, Intermittent, Less than 6 Hours Per Day (ICD-10-PCS; 2021-11-02)
PROC: 0W9B30Z Drainage of Left Pleural Cavity with Drainage Device, Percutaneous Approach (ICD-10-PCS; 2021-11-03)
PROC: 5A12012 Performance of Cardiac Output, Single, Manual (ICD-10-PCS; 2021-11-04)
DX: A40.1 Sepsis due to streptococcus, group B (principal); A48.0 Gas gangrene; R65.21 Severe sepsis with septic shock; G92.8 Other toxic encephalopathy; N18.6 End stage renal disease; J96.01 Acute respiratory failure with hypoxia; N25.81 Secondary hyperparathyroidism of renal origin; L03.115 Cellulitis of right lower limb; L03.116 Cellulitis of left lower limb; E11.52 Type 2 diabetes mellitus with diabetic peripheral angiopathy with gangrene; N17.9 Acute kidney failure, unspecified; E87.2 Acidosis; E87.1 Hypo-osmolality and hyponatremia; I13.2 Hypertensive heart and chronic kidney disease with heart failure and with stage 5 chronic kidney disease, or end stage renal disease; J91.8 Pleural effusion in other conditions classified elsewhere; D68.9 Coagulation defect, unspecified; E83.39 Other disorders of phosphorus metabolism; Z66 Do not resuscitate; Z51.5 Encounter for palliative care; Z78.1 Physical restraint status; D63.1 Anemia in chronic kidney disease; E78.5 Hyperlipidemia, unspecified; I50.9 Heart failure, unspecified; N40.0 Benign prostatic hyperplasia without lower urinary tract symptoms; E11.22 Type 2 diabetes mellitus with diabetic chronic kidney disease; D50.9 Iron deficiency anemia, unspecified; G47.33 Obstructive sleep apnea (adult) (pediatric); S92.351A Displaced fracture of fifth metatarsal bone, right foot, initial encounter for closed fracture; I46.9 Cardiac arrest, cause unspecified; E83.51 Hypocalcemia; E11.21 Type 2 diabetes mellitus with diabetic nephropathy; E87.6 Hypokalemia; F17.210 Nicotine dependence, cigarettes, uncomplicated; E87.5 Hyperkalemia; E11.69 Type 2 diabetes mellitus with other specified complication; E11.628 Type 2 diabetes mellitus with other skin complications; I48.91 Unspecified atrial fibrillation; Z91.14 Patient's other noncompliance with medication regimen; Z88.8 Allergy status to other drugs, medicaments and biological substances; Z79.84 Long term (current) use of oral hypoglycemic drugs; Z79.899 Other long term (current) drug therapy
CPT/HCPCS: 31500; 31720; 32555; 36415; 36430; 36556; 36558; 36569; 36600; 51703; 71045; 73620; 73700; 76770; 76937; 77001; 80048; 80053; 80069; 80074; 80202; 81001; 82330; 82533; 82728; 82803; 82947; 83036; 83540; 83550; 83605; 83735; 83880; 83970; 83986; 84100; 84132; 84145; 84443; 84484; 85014; 85018; 85025; 85610; 85651; 85730; 86140; 86317; 86850; 86900; 86901; 86923; 87040; 87086; 87147; 88108; 88305; 88307; 88311; 88341; 88342; 89051; 92526; 92610; 92950; 93005; 93010; 93306; 94002; 94003; 94640; 94660; 94664; 94760; 94762; 96374; 96375; 97110; 97162; 97166; 97530; 99152; 99285-25; A9270; C1750; C1751; C1752; C1769; C1894; J0171; J0461; J0610; J0690; J0881; J1265; J1610; J1644; J1815; J1940; J2185; J2250; J2270; J2310; J2370; J2543; J2704; J2930; J2997; J3010; J3370; J3430; J3475; J3480; J7030; J7040; J7050; J7060; J7070; P9016; P9041; P9046